=== PATIENT | female | born 1940 | race Caucasian/White ===

== ENCOUNTER → 2018-04-16 06:40 | Outpatient (CLI) | payer OTHER, SELFPAY ==
--- NOTE | 2018-04-16 07:17 | DI.MRI.S_ITS ---
PROCEDURE: MR SHOULDER RT WO CON INDICATIONS: acute on chronic r shoulder pain TECHNIQUE: Noncontrast oblique coronal T2 fast spin echo with fat saturation, oblique sagittal T1 spin echo and T2 fast spin echo with fat saturation, axial T1 spin echo and T2 fast spin echo with fat saturation through the shoulder. COMPARISON: None. FINDINGS: Image quality: There are motion artifacts on coronal images. Rotator cuff: There is a full-thickness tear of the supraspinatus tendon measuring 11 mm in the AP dimension and 8 mm in the transverse dimension. The infraspinatus and subscapularis tendons appear intact but irregular consistent with tendinitis. Sagittal images demonstrate no muscle atrophy. Bones and bursae: No bone marrow contusions or fractures. There is moderate acromioclavicular and severe glenohumeral joint degeneration. The acromion demonstrates conventional anatomy, without an os acromiale. Small joint effusion. Capsule and soft tissues: In the absence of intra-articular contrast, the labrum and glenohumeral ligaments appear intact. The transverse ligament is torn. The long head of the biceps tendon is displaced just outside of the bicipital groove. There is partial tear or tendinitis of the long head of biceps tendon. The rotator interval appears normal, without fibrosis. The coracohumeral ligament is normal in thickness. IMPRESSION: 1. Full- thickness tear of the supraspinatus tendon. 2. Infraspinatus and subscapularis tendinitis. 3. Severe glenohumeral and moderate acromioclavicular joint degeneration. 4. Torn transverse ligament with the long head of the biceps tendon dislocated outside of the bicipital groove. There is partial tear versus tendinitis of the long head of the biceps tendon. Dictated by: Cristian Ellison M.D. on 04/16/2018 at 8:26 Transcribed by: REMY on 04/16/2018 at 8:38 Approved by: Cristian Ellison M.D. on 04/16/2018 at 11:32
== END ==
PROVIDERS: Family Provider Family Medicine; PCP Family Medicine; Visit Provider Nurse Practitioner Family
DX: S46.111A Strain of muscle, fascia and tendon of long head of biceps, right arm, initial encounter (principal); M25.511 Pain in right shoulder; M75.101 Unspecified rotator cuff tear or rupture of right shoulder, not specified as traumatic; M75.91 Shoulder lesion, unspecified, right shoulder; M19.011 Primary osteoarthritis, right shoulder
CPT/HCPCS: 73221

== ENCOUNTER → 2018-10-02 11:41 | Outpatient (CLI) | payer OTHER, SELFPAY ==
--- NOTE | 2018-10-02 | DI.MG.S_ITS ---
BILATERAL DIGITAL SCREENING MAMMOGRAM 3D/2D WITH CAD: 10/02/2018 CLINICAL: Routine screening. Comparison is made to exams dated: 09/17/2017 mammogram, 09/01/2017 mammogram, and 07/24/2016 mammogram - [facility]. The tissue of both breasts is extremely dense, which lowers the sensitivity of mammography. Current study was also evaluated with a Computer Aided Detection (CAD) system. No significant masses, calcifications, or other findings are seen in either breast. There has been no significant interval change. IMPRESSION: NEGATIVE There is no mammographic evidence of malignancy. A 1 year screening mammogram is recommended. This exam was interpreted at Station ID: [id number]. NOTE: For mammograms, a report in lay terms will be sent to the patient. Approximately 15% of breast malignancies will not be visualized mammographically. In the management of a palpable breast mass, a negative mammogram must not discourage biopsy of a clinically suspicious lesion. Electronically Signed By: Erica pinto/brenton:10/02/2018 12:18:06 letter sent: Normal Exam ACR BI-RADS Category 1: Negative 3341F
== END ==
PROVIDERS: PCP Family Medicine; Visit Provider Family Medicine
DX: Z12.31 Encounter for screening mammogram for malignant neoplasm of breast (principal)
CPT/HCPCS: 77063; 77067

== ENCOUNTER → 2018-12-17 07:13 | Outpatient (CLI) | payer OTHER, SELFPAY ==
[2018-12-17 08:10] LABS: Add Manual Diff / Slide Review NO; Basophils Absolute Auto 0 /uL (0-100); Basophils Percent Auto 1.1 % (0-2); Eosinophils Absolute Auto 100 /uL (0-450); Hematocrit 43.3 % (36-46); Hemoglobin 14.3 g/dL (12.0-16.0); Lymphocytes Absolute Auto 900 /uL (1100-4500); Mean Corpuscular Hemoglobin 31.2 PG (26-34); Mean Corpuscular Volume 94.8 fL (80-100); Monocytes Absolute Auto 500 /uL (0-900); Monocytes Percent Auto 10.5 % (3-14); Neutrophils Absolute Auto 2900 /uL (1500-7000); Neutrophils Percent Auto 65.4 % (50-75); Platelet Count 232 X10^3/uL (150-400); Red Blood Cell Count 4.56 X10^6/uL (4.0-5.2); Red Cell Distribution Width 12.3 % (11.6-14.8); White Blood Cell Count 4.5 X10^3/uL (4.5-11.0)
[2018-12-17 08:14] LABS: Alanine Aminotransferase 21 IU/L (9-52); Albumin 4.3 g/dL (3.5-5.0); Albumin Globulin Ratio 1.5 (1.0-2.8); Alkaline Phosphatase 54 U/L (38-126); Aspartate Aminotransferase 28 IU/L (14-36); Bilirubin Total 0.8 mg/dL (0.2-1.3); Blood Urea Nitrogen 18 mg/dL (7-17); Calcium 9.1 mg/dL (8.4-10.2); Carbon Dioxide 29 mmol/L (22-32); Chloride 101 mmol/L (98-107); Cholesterol 180 mg/dL (140-199); Estimated Glomerular Filt Rate > 60.0 mL/min (>60); Globulin 2.8 g/dL (1.7-4.1); Glucose 86 mg/dL (80-110); HDL Cholesterol 79 mg/dL (40-60); HEMOLYSIS < 15 (0-50); LDL Cholesterol Calculated 90 mg/dL (<100); Potassium 4.2 mmol/L (3.4-5.1); Sodium 136 mmol/L (137-145); Total Protein 7.1 g/dL (6.3-8.2); Triglycerides 56 mg/dL (35-150)
[2018-12-17 08:16] LABS: Creatinine Urine Random 67.2 mg/dL
[2018-12-17 08:19] LABS: Microalbumi Creatinin Ratio Ur 17.8 ug/mg CR (<30); Microalbumin Urine Random 1.2 mg/dL (0-1.6)
[2018-12-17 08:30] LABS: Vitamin D 25 Hydroxy (D3) 44.4 ng/mL (30.0-100.0)
[2018-12-17 08:45] LABS: Thyroid Stimulating Hormone 1.43 uIU/mL (0.47-4.68)
== END ==
PROVIDERS: PCP Family Medicine; Visit Provider Family Medicine
DX: I10 Essential (primary) hypertension (principal); M85.80 Other specified disorders of bone density and structure, unspecified site; R89.9 Unspecified abnormal finding in specimens from other organs, systems and tissues; Z13.0 Encounter for screening for diseases of the blood and blood-forming organs and certain disorders involving the immune mechanism; Z13.1 Encounter for screening for diabetes mellitus; Z13.220 Encounter for screening for lipoid disorders
CPT/HCPCS: 36415; 80053; 80061; 82043; 82306; 82570; 84443; 85025

== ENCOUNTER → 2019-10-13 10:49 | Outpatient (CLI) | payer OTHER, SELFPAY ==
--- NOTE | 2019-10-13 | DI.MG.S_ITS ---
BILATERAL DIGITAL SCREENING MAMMOGRAM 3D/2D WITH CAD: 10/13/2019 CLINICAL: Routine screening. Comparison is made to exams dated: 10/02/2018 mammogram, 09/17/2017 mammogram, and 09/01/2017 mammogram - [facility]. The tissue of both breasts is extremely dense, which lowers the sensitivity of mammography. Current study was also evaluated with a Computer Aided Detection (CAD) system. There is a benign calcification in the right breast. There also are benign post operative findings in the right breast. No significant masses, calcifications, or other findings are seen in either breast. There has been no significant interval change. IMPRESSION: There is no mammographic evidence of malignancy. A 1 year screening mammogram is recommended. This exam was interpreted at Station ID: [id number]. NOTE: For mammograms, a report in lay terms will be sent to the patient. Approximately 15% of breast malignancies will not be visualized mammographically. In the management of a palpable breast mass, a negative mammogram must not discourage biopsy of a clinically suspicious lesion. Electronically Signed By: Federico mercado/brenton:10/13/2019 11:54:34 letter sent: Normal Exam ACR BI-RADS Category 2: Benign Finding(s) 3342F
== END ==
PROVIDERS: PCP Family Medicine; Referring Provider Family Medicine; Visit Provider Family Medicine
DX: Z12.31 Encounter for screening mammogram for malignant neoplasm of breast (principal)
CPT/HCPCS: 77063; 77067

== ENCOUNTER → 2019-11-02 10:35 | Outpatient (CLI) | payer OTHER, SELFPAY ==
[2019-11-02 12:21] LABS: Influenza A - CEPHEID Flu A NEGATIVE (NEGATIVE); Influenza B - CEPHEID Flu B NEGATIVE (NEGATIVE)
[2019-11-04 09:27] LABS: COVID19 Sendout Detected (Not Detected)
== END ==
PROVIDERS: PCP Family Medicine; Visit Provider Physician Assistant
DX: R06.02 Shortness of breath (principal)
CPT/HCPCS: 87502; 87635

== ENCOUNTER → 2019-11-30 10:00 | Outpatient (CLI) | payer OTHER, SELFPAY ==
[2019-12-02 04:36] LABS: COVID19 Sendout Not Detected (Not Detected)
== END ==
PROVIDERS: PCP Family Medicine; Visit Provider Family Medicine
DX: Z11.9 Encounter for screening for infectious and parasitic diseases, unspecified (principal)
CPT/HCPCS: 87635

== ENCOUNTER → 2019-12-27 14:09 | Outpatient (CLI) | payer OTHER, SELFPAY ==
--- NOTE | 2019-12-27 14:11 | DI.US.S_ITS ---
ULTRASOUND OF RIGHT BREAST: 12/27/2019 CLINICAL: Palpable right breast lump. Comparison is made to exams dated: 12/27/2019 mammogram, 10/13/2019 mammogram, 10/02/2018 mammogram, 09/01/2017 mammogram, 07/24/2016 mammogram, and 07/13/2014 [facility]. Color flow and real-time ultrasound of the right breast were performed on the areas of interest. Goode scale images of the real-time examination were reviewed. There is a 1.4 cm x 1.5 cm x 1.9 cm irregular mass in the right breast at 11 o'clock middle depth. This irregular mass is hypoechoic. This correlates as palpated and with mammography findings. There also is a 0.9 cm x 0.9 cm x 0.8 cm irregular mass in the right breast at 11 o'clock middle depth 1 cm from the palpable mass. IMPRESSION: HIGHLY SUGGESTIVE OF MALIGNANCY The 1.4 cm x 1.5 cm x 1.9 cm irregular mass in the right breast at 10 o'clock middle depth is highly suggestive of malignancy. An ultrasound guided biopsy is recommended. The 0.9 cm x 0.9 cm x 0.8 cm irregular mass in the right breast at 10 o'clock middle depth is at a high suspicion for malignancy. Given the proximity to the palpable mass, both lesions can potentially be biopsied at the same time. This exam was interpreted at Station ID: [id number]. SUMMARY: This was discussed with the patient by the radiologist Dr. Contreras at the time of the exam. Electronically Signed By: Erica pinto/:12/27/2019 16:11:34 letter sent: Biopsy Required Ultrasound BI-RADS: 5 Highly suggestive of malignancy
--- NOTE | 2019-12-27 14:11 | DI.MG.S_ITS ---
UNILATERAL RIGHT DIGITAL DIAGNOSTIC MAMMOGRAM 3D/2D: 12/27/2019 CLINICAL: Right breast mass. Comparison is made to exams dated: 10/13/2019 mammogram, 10/02/2018 mammogram, and 09/01/2017 mammogram - [facility]. The tissue of right breast is extremely dense, which lowers the sensitivity of mammography. There is architectural distortion in the right breast at 12 o'clock middle depth. This correlates as palpated. No other significant masses or calcifications are seen in the breast. IMPRESSION: INCOMPLETE: NEEDS ADDITIONAL IMAGING EVALUATION The architectural distortion in the right breast is indeterminate. A targeted ultrasound of the right breast is recommended and will be performed immediately following this exam. This exam was interpreted at Station ID: [id number]. NOTE: For mammograms, a report in lay terms will be sent to the patient. Approximately 15% of breast malignancies will not be visualized mammographically. In the management of a palpable breast mass, a negative mammogram must not discourage biopsy of a clinically suspicious lesion. Electronically Signed By: Erica Wyman M.D. lk/:12/27/2019 14:55:31 ACR BI-RADS Category 0: Incomplete 3340F
== END ==
PROVIDERS: PCP Family Medicine; Referring Provider Family Medicine; Visit Provider Family Medicine
DX: R92.8 Other abnormal and inconclusive findings on diagnostic imaging of breast (principal); N63.11 Unspecified lump in the right breast, upper outer quadrant
CPT/HCPCS: 76642; 77065; G0279

== ENCOUNTER → 2020-01-10 12:49 | Outpatient (CLI) | payer OTHER, SELFPAY ==
--- NOTE | 2020-01-10 | PATH_ITS ---
[facility] Accession Number: [id number] . 01 Material submitted: . breast - RIGHT BREAST MASS . 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 Greatest linear extent: 2 mm. Ductal carcinoma in situ: Not identified. Microcalcifications: Not identified. Lymphovascular invasion: Not identified. Prognostic markers: Results are pending, and results will be issued in an addendum. [facility] 01/12/2020 1332 Local . 02 Comment: As part of routine air quality specialist, Dr. Pittman has reviewed this case and agrees with the diagnosis of invasive ductal carcinoma. The finding of invasive ductal carcinoma was reported to Dr. Flynn via his RN, Anayeli by Dr. Sarmiento on 01/12/20 at 1 p.m. . 02 Electronically signed: . Gómez Sarmiento MD, PhD, Pathologist NPI- [id number] . 01 Gross description: . Received one formalin-filled container, labeled with the patient's name and designated right breast mass. The specimen is received with a plastic filter in container, sample loose in container and consists of multiple light yellow-valera, cylindrical-shaped portions of tissue which range in size from 0.2 x 0.1 x 0.1 cm to 1.3 x 0.3 x 0.3 cm. The specimen is filtered, wrapped, and entirely submitted in one cassette. Collection date: 01/10/20. Collection time per container: 1405. Total fixation time: Approximately 10 hours. ([id number]) /R 01/11/2020 0215 Local . 02 Pathologist provided ICD-10: C50.911 . 02 CPT . 656362, P38662, J01063 Performed at: 01 [facility] [address] [address], [place], [place] [id number] MD Moses Dubon MD Phone: [phone] Performed at: [id number] [place], [place] [id number] MD Crys Pittman MD Phone: [phone]
--- NOTE | 2020-01-10 | DI.MG.S_ITS ---
UNILATERAL RIGHT DIGITAL DIAGNOSTIC MAMMOGRAM POST-NEEDLE BIOPSY: 01/10/2020 CLINICAL: Right breast mass. Comparison is made to exams dated: 12/27/2019 mammogram, 10/13/2019 mammogram, and 10/02/2018 mammogram - [facility]. The tissue of right breast is extremely dense, which lowers the sensitivity of mammography. Earlier US had raised concern for presence of a possible lateral mass adjacent to the larger hypoechoic mass that was biopsied today. The smaller structure could not be identified by US today despite careful review of the soft tissues lateral to the dominant mass and in this general area. It was not found, and is considered a false positive finding. There is a mass in the right breast at 10 o'clock anterior depth. This was identified by US and biopsied, and thereafter a Vision marker clip at the site of biopsy was deployed. IMPRESSION: POST PROCEDURE MAMMOGRAM FOR MARKER PLACEMENT A small questionable sonographic density lateral but in close proximity to the clearly visible larger mass could not be found despite careful sonographic evaluation of the area of prior concern, and is considered a false positive. The hypoechoic solid mass clearly seen in the right breast breast was biopsied and a Vision marker was placed at the posterior border of the mass with position confirmed by both US and followup mammogram. This exam was interpreted at Station ID: [id number]. NOTE: For mammograms, a report in lay terms will be sent to the patient. Approximately 15% of breast malignancies will not be visualized mammographically. In the management of a palpable breast mass, a negative mammogram must not discourage biopsy of a clinically suspicious lesion. Electronically Signed By: Chintan Contreras M.D. sdh/:01/11/2020 10:45:44 ACR BI-RADS Category Post-procedure mammogram for marker placement
--- NOTE | 2020-01-10 12:51 | DI.US.S_ITS ---
ULTRASOUND GUIDED BIOPSY RIGHT BREAST USING VACUUM DEVICE WITH MARKING DEVICE INSERTED AND POST MAMMOGRAPHIC IMAGIN01/10/2020 CLINICAL: Right breast mass. PATIENT CONSENT: Risks (minor bleeding, infection, vasovagal reaction and repeat procedure), benefits and alternatives were explained to the patient and written informed consent was obtained. Correlation is made to exams dated: 12/27/2019 ultrasound, 12/27/2019 mammogram, 10/13/2019 mammogram, 10/02/2018 mammogram, and 09/01/2017 mammogram - [facility]. An ultrasound guided biopsy using real-time ultrasound was performed for the concerning 1.4 cm x 1.5 cm x 1.9 cm circumscribed irregular shaped solid mass located in the right breast at 10 o'clock middle depth. This was described on the previous ultrasound report. A second area of concern just lateral to the dominant mass could not be located during scanning in the area of prior concern. The skin was prepped in the usual manner. Local anesthetic was administered to the access site. A skin romelia was made in the breast. The abnormality was approached from the lateral aspect. A 13 gauge biopsy needle was placed adjacent to the abnormality under ultrasound guidance. Once the needle was documented to be in the correct location, four cores were obtained using the Mammotome biopsy system. The patient received additional local anesthetic during the procedure. A Vision marker clip was inserted into the biopsy cavity. A skin closure strip and a sterile dressing were applied to the access site. Post procedure mammographic imaging demonstrates the location device at the targeted area and partial removal of the abnormality. The specimens were sent to the laboratory for pathological analysis. IMPRESSION: ULTRASOUND GUIDED BIOPSY MALIGNANT Ultrasound guided biopsy of the 1.4 cm x 1.5 cm x 1.9 cm solid mass in the right breast at 10 o'clock middle depth was successful. Pathology demonstrates invasive ductal carcinoma. Imaging findings are concordant. Recommend surgical/oncological consultation and management. A second adjacent area of prior sonographic concern just lateral to the larger lesion of concern could not be found in the right upper outer quadrant despite repeat scanning throughout that area. This exam was interpreted at Station ID: [id number]. Chintan Rea M.D. [facility]/:01/14/2020 11:44:53
== END ==
PROVIDERS: PCP Family Medicine; Referring Provider Family Medicine; Visit Provider Family Medicine
DX: C50.411 Malignant neoplasm of upper-outer quadrant of right female breast (principal); Z17.0 Estrogen receptor positive status [ER+]
CPT/HCPCS: 19083; 77065

== ENCOUNTER → 2020-01-28 13:00 | Outpatient (CLI) | payer OTHER, SELFPAY ==
[2020-01-29 09:30] LABS: COVID19 Sendout NOT DETECTED (Not Detect)
== END ==
PROVIDERS: PCP Family Medicine; Visit Provider Physician Assistant
DX: Z01.812 Encounter for preprocedural laboratory examination (principal)
CPT/HCPCS: 87635

== ENCOUNTER 2020-01-31 08:41 | Day surgery (SDC) | payer OTHER, SELFPAY ==
[2020-01-26 07:42] VITALS: BMI 18.8
--- NOTE | 2020-01-31 | PATH_ITS ---
[facility] Accession Number: [id number] . 01 Material submitted: . PART A: lymph node - SENTINAL NODE RIGHT AXILLA PART B: breast - RIGHT BREAST . 01 Clinical history: . B: LONG STITCH MEDIAL, SHORT STITCH SUPERIOR RIGHT LUMPECTOMY W/SENT NODE . 01 Diagnosis: A. Right Axillary [place] Lymph Node, Biopsy: One of three lymph nodes positive for micrometastatic carcinoma, less than 1 mm, involving lymph node capsule. . B. Right Breast, Excision: Invasive ductal carcinoma; see cancer case summary. . . SURGICAL PATHOLOGY CANCER CASE SUMMARY - INVASIVE CARCINOMA OF THE BREAST Procedure: Excision: Specimen laterality: Right. Tumor site: Not specified. Tumor size: 17 mm (measured from glass slide, spanning blocks B6-B7). Histologic type: Invasive carcinoma of no special type (ductal). Histologic grade: Glandular tubular differentiation: Score 2. Nuclear pleomorphism: Score 2. Mitotic rate: Score 1. Overall grade: Grade 1. Tumor focality: Single focus of invasive carcinoma. Ductal carcinoma in situ: Not identified. Tumor extension: Skin is present and uninvolved. Margins: Invasive carcinoma margins: Uninvolved by invasive carcinoma. Distance from closest margin: 3 mm. Specify closest margin: Posterior. Distance from other margins: Greater than 5 mm from all other margins. Regional lymph nodes: Involved by tumor cells. Number of lymph nodes with macrometastes: 0. Number of lymph nodes with micrometastes: 1. Site of larges metastatic deposit: Less than 1 mm. Extranodal extension: Present. Extent of extranodal extension: Less than 2 mm. Total number of lymph nodes examined: 3. Number of sentinel lymph nodes examined: 3. Treatment effectiveness: No known presurgical therapy. Lymphovascular invasion: Not identified. Dermal lymphovascular invasion: Not identified. Pathologic stage classification (pTNM, AJCC 8th Edition): Primary tumor: pT1c. Regional lymph node modifier: (sn) Regional lymph nodes: pN1mi Ancillary studies (reported on biopsy specimen [id number]). Estrogen receptor: Positive. Progeterone receptor: Positive. HER2 by immunohistochemistry: Negative (1+). [facility] 02/03/2020 1537 Local . 01 Electronically signed: . Gómez Sarmiento MD, PhD, Pathologist NPI- [id number] . 01 Gross description: . Specimen A is received in formalin, labeled with patient identification and sentinel node right axilla. It consists of a yellow-lanza and lobulated fibroadipose tissue piece measuring 3.2 x 2.0 x 0.8 cm. There are three lymph node candidates, one has a black suture attached to it. The lymph node candidate with attached suture measures 1.0 x 0.8 x 0.5 cm. Bisected, this lymph node candidate reveals homogeneously dark red to white-lanza and smooth cut surfaces. The remaining two lymph node candidates are 0.6 to 1.1 cm in greatest dimension. Sectioning these two lymph node candidates reveals homogeneously yellow-lanza and smooth cut surfaces. The entire specimen is submitted in three cassettes. . Summary of sections: A1: One bisected lymph node candidate with attached suture, two pieces. A2: Two bisected lymph node candidates (one is inked blue), four pieces. A3: The remaining adipose tissue, three pieces. . B. Specimen B is received in formalin, labeled with patient identification and right breast, long stitch medial, short superior. Specimen: Right lumpectomy with attached skin. Weight: 51 grams. Measurement: 5.0 cm from superior to inferior, 6.8 cm from medial to lateral, and 2.5 cm from anterior to posterior. Skin Ellipse: One ellipse of white-lanza, dull attached skin is present, measuring 3.5 x 1.5 cm. A 0.4 x 0.4 x 0.1 cm, eccentric papule is present at 0.2 cm to the closest skin edge. Wire: Absent. Margins: Oriented with long medial suture and short superior suture, and inked as follows: posterior=black; anterior=purple; superior=blue; inferior=green; medial=yellow; lateral=orange. Slices: Sectioning from medial to lateral into 17 slices. Lesions: Two induration are present, the distance between two lesions is 1.0 cm. Lesion #1: Description: Unencapsulated, ill defined, light lanza and indurated lesion with a Vision biopsy clip (slice 11). Size: 2.5 x 1.8 x 1.5 cm. Slice involved: Slices 4-11. Biopsy site: A hemorrhagic biopsy cavity is present on slice 11 with a Vision-shaped biopsy clip. Distance to margins: 0.3 cm to the posterior margin, 0.6 cm to the anterior margin, 1.1 cm to inferior margin, 1.5 cm to the superior margin, 1.6 cm to the medial margin, and 2.7 cm to the lateral margin. Lesion #2: Description: Unencapsulated, white-lanza, ill-defined and indurated lesions with biopsy cavity (slice 14). Size: 0.9 x 0.8 x 0.5 cm. Biopsy site: On hemorrhagic biopsy site is present on slice 14 without biopsy clip. Slices involved: Slices 12-15. Distance to margins: 0.1 cm to the anterior margin, 0.4 cm to the superior margin, 1.2 cm to the lateral margin, 1.3 cm to the posterior margin, 2.2 cm to the inferior margin, and 4.1 cm to the medial margin. Other: The remaining cut surfaces consists of yellow, lobulated adipose tissue comprising 30% of the breast parenchyma. The remaining 70% consists of valera-white, rubbery, fibroglandular tissue. No additional discrete masses or lesions are grossly identified. Fixation time: The specimen was placed in formalin at 16:28 on 01/31/2020 for a total fixation time of 31 hours 30 minutes. Sections: B1: Slice 1, software support representative medial end of specimen, perpendicular, four pieces. B2: Slice 3, software support representative, no identifiable tumor, medial to lesion 1 (beginning of bracket). B3: Slice 4, lesion 1 to superior, anterior, posterior margins. B4: Slice 5, lesion 1 to anterior, posterior, inferior margins. B5: Slice 6, lesion 1 to posterior and anterior margins with skin. B6-B7: Entire slice 8, lesion 1 to the closest superior, anterior, inferior margins with skin and skin lesions, pair, one piece each. B8: Slice 9, lesion 1 to closest posterior margin, one piece. B9: Slice 10, lesion 1 to posterior and anterior margins with skin, one piece. B10-B11: Entire slice 11, lesion 1 with biopsy cavity, one piece each. B12: Slice 12, lesion 2 to anterior and posterior margins with skin, one piece. B13: Slice 13, lesion 2 to the closest anterior, posterior, superior margins with skin, one piece. B14: Slice 14, lesion 2 with biopsy cavity, one piece. B15: Slice 15, lesion 2 to anterior, posterior, and superior margin, one piece. B16: Slice 16, software support representative, no identifiable tumor, lateral to lesions (end of the bracket), one piece. B17: Slice 17, software support representative lateral end of specimen, perpendicular, three pieces. (TN:[id number]) /MRV 02/03/2020 1537 Local . 01 Pathologist provided ICD-10: C50.911 . 01 CPT . 809148, [id number] Performed at: [facility] [address] [place] [address], [place], [place] [id number] MD Moses Dubon MD Phone: [phone]
--- NOTE | 2020-01-31 | DI.MG.S_ITS ---
SPECIMEN: 01/31/2020 CLINICAL: Right breast speciman. Correlation is made to exams dated: 01/10/2020 mammogram, 01/10/2020 ultrasound biopsy, 12/27/2019 ultrasound, 12/27/2019 mammogram, and 10/13/2019 mammogram - [facility]. Right lumpectomy specimen contains the biopsy clip. IMPRESSION: SPECIMEN Right lumpectomy specimen contains the biopsy clip. This exam was interpreted at Station ID: [id number]. Terrell Rea M.D. slc/:01/31/2020 16:23:12
--- NOTE | 2020-01-31 08:46 | DI.NM.S_ITS ---
PROCEDURE: NM SENTINEL NODE W IMAGING RADIOPHARMACEUTICAL: 0.5-1.0 mCi Millipore filtered Tc-99m sulfur colloid. INDICATIONS: right breast lump TECHNIQUE: The area around the nipple was prepped and draped in a sterile fashion. Tc-99m sulfur colloid was injected intra-dermally in the outer edge of the areola in the right breast. Images were obtained subsequently. A body contour outline was obtained. FINDINGS: There is/are multiple lymph node(s) in the ipsilateral axilla. IMPRESSION: Administration of radiotracer into the right breast periareolar region for intra-operative sentinel lymph node localization. Dictated by: Ben Patrick M.D. on 01/31/2020 at 15:57 Approved by: Ben Patrick M.D. on 01/31/2020 at 15:58
[2020-01-31 09:05] VITALS: BP 120/72; PULSE 67; RESP 16; TEMP 37.1; O2SAT 96; BMI 18.6
[2020-01-31] MEDS: LACTATED RINGERS 1,000 ML 100 ML IV (12:00)
--- NOTE | 2020-01-31 14:28 | PM.PREOP ---
Pre-operative Note COVID-19 COVID-19 status: Negative Result date/Date tested (Pos, Neg/Pending): 01/28/20 Interval Note History & Physical reviewed/Exam performed by Physician: Yes Changes to H&P: Yes H&P completed within 30 days and has changed as indicated here:: Patient was discussed at tumor board. There was question about the need for postoperative radiation and for sentinel node biopsy. There is disagreement in the literature as to how to proceed. The decision regarding radiation will hinge in part on whether there lymph nodes involved. Therefore sentinel node will be done though there is certainly indications in the literature though the studies are small that this may not add a great deal to her overall treatment.
[2020-01-31] MEDS: CEFAZOLIN 2 GM/100 ML FROZ.PIGGY IV (14:42)
--- NOTE | 2020-01-31 15:25 | SUR.OPER ---
Supine on padded OR bed, head on pillow, arms secured on padded arm boards at <90 degrees abduction, legs uncrossed, safety belt at thigh, tape over blanket over lower legs.
[2020-01-31] MEDS: BUPIVACAINE 0.5% (PF) VIAL 30 ML INJ (15:49)
[2020-01-31 16:33] VITALS: BP 173/71; PULSE 90; RESP 12; TEMP 36.7; O2SAT 97
[2020-01-31 16:38] VITALS: BP 164/73; PULSE 85; RESP 14; O2SAT 98
[2020-01-31 16:43] VITALS: BP 148/77; PULSE 82; RESP 13; O2SAT 98
--- NOTE | 2020-01-31 16:44 | P.OP_ITS ---
Operative Date/Time/Diagnoses Date of procedure: 01/31/20 Time of procedure: 16:28 Pre-op diagnosis: Right-sided breast cancer Post-op diagnosis: same Procedure & Clinicians Procedure: Lumpectomy/quadrantectomy with sentinel lymph node biopsy right axilla Same procedure as scheduled: Yes Indications: Right-sided breast cancer. Patient has palpable mass. Clinically negative axilla. Surgeon: Castillo Lee Click Yes if Unassisted: Yes Anesthesia Type: General Operative Notes Findings: One node removed that was hot. Mass removed which contained the clip that had been placed at biopsy in the center of the tissue removed. Closure Type: primary Specimen(s): other ([place] lymph node. Breast mass.) Prosthetic devices, grafts, tissues, transplants, or devices: None Estimated Blood Loss (mL): 15 Blood products transfused: none Procedure in detail: The patient was placed supine on the operating table and underwent general LMA anesthesia. She was prepped and draped in the usual fashion. Transverse incision was made across the axilla and carried down into the axilla proper. Using a navigator probe identified a sentinel node. It was excised and a 12nd count done on it. This registered 4200. There were no other nodes in the area that even came close to the value of this lymph node. The axillary fascia was closed with interrupted 3 0 Vicryl. The subcu was closed with interrupted 3 0 Vicryl and the skin was closed running 4 0 Vicryl subcuticular stitch. Attention was turned to the breast mass. Using completely different instruments changing gloves I made an elliptical incision overlying the palpable mass. This included a portion of the areola complex. Staying immediately beneath the skin to avoid anterior positive margin I dissected the palpable mass from the tissue overlying it. I felt clearly soft margins at the edges and dissected down to the chest wall in remove the mass right off of pectoralis major fascia. In the dissection I encountered scar from a prior biopsy in the lateral aspect of my dissection. The specimen was submitted for radiologic evaluation and a contained the clip and the density. Meticulous hemostasis was achieved. Because the patient had rather small breasts and a rather large defect was created by the lumpectomy I mobilized the tissue off the underlying pack ends was able to slide it into the defect and was able to close it with tissue. Clips were placed in the wall prior to completion of this closure. This was to daniel the site should it be needed for radiation. The skin was closed a running 4 0 Vicryl subcuticular stitch and a running 6 0 Prolene skin suture. The wounds were cleaned. Steri-Strips were applied to the axillary incision. Dressings were applied over these consisting a Telfa and Tegaderm. I then placed an ABD over the whole area and wrapped it with a 6 since Robert wrap. She was taken to the recovery room awake and extubated in good condition. Complications: none Post-operative Condition: stable Disposition: PACU Plan for aftercare: Follow-up in the office
[2020-01-31 16:52] VITALS: BP 162/76; PULSE 76; RESP 12; TEMP 36.7; O2SAT 95
[2020-01-31] MEDS: ACETAMINOPHEN 325 MG TABLET PO (16:55)
[2020-01-31 17:10] VITALS: BP 158/81; PULSE 67; RESP 16; TEMP 36.7; O2SAT 96
== END 2020-01-31 17:15 | disposition home or self-care (01) ==
PROVIDERS: PCP Family Medicine; Referring Provider Specialist; Visit Provider Specialist
PROC: (CPT 19301; principal; 2020-01-31 14:30)
DX: C50.911 Malignant neoplasm of unspecified site of right female breast (principal)
CPT/HCPCS: 19301; 38500; 76098; 78195; A9541; J0690; J1100; J2405; J2704; J3010

== ENCOUNTER → 2020-03-04 08:09 | Outpatient (CLI) | payer OTHER, SELFPAY ==
[2020-03-04 09:25] LABS: Add Manual Diff / Slide Review NO; Basophils Absolute Auto 100 /uL (0-100); Eosinophils Absolute Auto 100 /uL (0-450); Eosinophils Percent Auto 2.6 % (2-4); Hematocrit 43.9 % (36-46); Hemoglobin 14.7 g/dL (12.0-16.0); Lymphocytes Absolute Auto 800 /uL (1100-4500); Lymphocytes Percent Auto 15.6 % (25-40); Mean Corpuscular HGB Conc 33.5 % (30-36); Mean Corpuscular Hemoglobin 31.4 PG (26-34); Mean Corpuscular Volume 93.9 fL (80-100); Monocytes Absolute Auto 500 /uL (0-900); Monocytes Percent Auto 9.9 % (3-14); Neutrophils Absolute Auto 3500 /uL (1500-7000); Neutrophils Percent Auto 70.9 % (50-75); Platelet Count 207 X10^3/uL (150-400); Red Blood Cell Count 4.67 X10^6/uL (4.0-5.2); Red Cell Distribution Width 12.2 % (11.6-14.8); White Blood Cell Count 4.9 X10^3/uL (4.5-11.0)
[2020-03-04 09:43] LABS: Alanine Aminotransferase 24 IU/L (<35); Albumin 4.4 g/dL (3.5-5.0); Alkaline Phosphatase 62 U/L (38-126); Aspartate Aminotransferase 31 IU/L (14-36); BUN Creatinine Ratio 29.8 (6-22); Blood Urea Nitrogen 14 mg/dL (7-17); Calcium 9.6 mg/dL (8.4-10.2); Carbon Dioxide 26 mmol/L (22-32); Chloride 103 mmol/L (98-107); Cholesterol 165 mg/dL (140-199); Estimated Glomerular Filt Rate > 60.0 mL/min (>60); Globulin 2.2 g/dL (1.7-4.1); Glucose 85 mg/dL (80-110); HDL Cholesterol 94 mg/dL (40-60); HEMOLYSIS < 15 (0-50); LDL Cholesterol Calculated 62 mg/dL (<100); Potassium 4.5 mmol/L (3.4-5.1); Sodium 135 mmol/L (137-145); Total Protein 6.6 g/dL (6.3-8.2); Triglycerides 45 mg/dL (35-150)
[2020-03-04 10:11] LABS: Thyroid Stimulating Hormone 1.52 uIU/mL (0.47-4.68)
== END ==
PROVIDERS: PCP Family Medicine; Referring Provider Family Medicine; Visit Provider Family Medicine
DX: M85.80 Other specified disorders of bone density and structure, unspecified site (principal)
CPT/HCPCS: 36415; 80053; 80061; 84443; 85025

== ENCOUNTER → 2020-03-30 14:05 | Outpatient (CLI) | payer OTHER, SELFPAY | PROVIDERS: PCP Family Medicine; Referring Provider Family Medicine; Visit Provider Family Medicine | DX: M85.852 Other specified disorders of bone density and structure, left thigh (principal); Z78.0 Asymptomatic menopausal state; Z82.62 Family history of osteoporosis; Z85.3 Personal history of malignant neoplasm of breast; Z87.891 Personal history of nicotine dependence | CPT/HCPCS: 77080 ==

== ENCOUNTER → 2020-07-28 12:37 | Outpatient (CLI) | payer OTHER, SELFPAY ==
--- NOTE | 2020-07-28 | DI.MG.S_ITS ---
BILATERAL DIGITAL DIAGNOSTIC MAMMOGRAM 3D/2D SHORT-TERM FOLLOW-UP: 07/28/2020 CLINICAL: Patient returns for a 6 month follow up of the right breast, due for bilateral exam. Comparison is made to exams dated: 01/10/2020 mammogram, 12/27/2019 mammogram, 10/13/2019 mammogram, and 10/02/2018 mammogram - [facility]. The tissue of both breasts is heterogeneously dense. This may lower the sensitivity of mammography. The right breast has expected post-operative findings. No significant masses, calcifications, or other findings are seen in either breast. IMPRESSION: NEGATIVE There is no mammographic evidence of malignancy. A 1 year screening mammogram is recommended. However, shorter interval follow up imaging can also be performed at the clinical discretion of patient's physician. Findings and recommendations were conveyed to the patient during today's evaluation. This exam was interpreted at Station ID: [id number]. NOTE: For mammograms, a report in lay terms will be sent to the patient. Approximately 15% of breast malignancies will not be visualized mammographically. In the management of a palpable breast mass, a negative mammogram must not discourage biopsy of a clinically suspicious lesion. Electronically Signed By: Federico Woodruff M.D. aty/:07/28/2020 13:57:34 letter sent: Normal Exam ACR BI-RADS Category 1: Negative 3341F
== END ==
PROVIDERS: PCP Family Medicine; Referring Provider Radiology Therapeutic Radiology; Visit Provider Radiology Therapeutic Radiology
DX: R92.8 Other abnormal and inconclusive findings on diagnostic imaging of breast (principal)
CPT/HCPCS: 77066; G0279

== ENCOUNTER → 2021-04-02 13:51 | Outpatient (CLI) | payer OTHER, SELFPAY ==
--- NOTE | 2021-04-02 13:52 | DI.RAD.S_ITS ---
PROCEDURE: XR SHOULDER LT MIN 2V INDICATIONS: progressive L shoulder pain TECHNIQUE: 3 views of the shoulder were acquired. COMPARISON: [facility] [place], CR, XR SHOULDER 2+ VIEWS RIGHT, 04/28/2018, 14:43. FINDINGS: Bones: No fractures or dislocations. No suspicious bony lesions. Visualized ribs appear intact. Soft tissues: No suspicious soft tissue calcifications. Atherosclerotic vascular calcification noted in the aortic arch. IMPRESSION: Aortic atherosclerosis. Otherwise unremarkable left shoulder radiographs Approved by: Malcolm Plummer M.D. on 04/02/2021 at 13:42
== END ==
PROVIDERS: PCP Family Medicine; Referring Provider Family Medicine; Visit Provider Family Medicine
DX: M75.00 Adhesive capsulitis of unspecified shoulder (principal); M25.512 Pain in left shoulder; I70.0 Atherosclerosis of aorta
CPT/HCPCS: 73030

== ENCOUNTER → 2021-05-21 08:42 | Outpatient (CLI) | payer OTHER, SELFPAY ==
--- NOTE | 2021-05-21 | DI.MG.S_ITS ---
BILATERAL DIGITAL DIAGNOSTIC MAMMOGRAM 3D/2D: 05/21/2021 CLINICAL: Breast cancer. Comparison is made to exams dated: 07/28/2020 mammogram, 01/10/2020 mammogram, 12/27/2019 mammogram, 10/13/2019 mammogram, 10/02/2018 mammogram, and 09/01/2017 mammogram - [facility]. The tissue of both breasts is heterogeneously dense. This may lower the sensitivity of mammography. There is a benign calcification in the right breast. There also are expected post operative findings in the right breast. No significant masses, calcifications, or other findings are seen in either breast. There has been no significant interval change. IMPRESSION: BENIGN There is no mammographic evidence of malignancy. Expected post-operative findings in the right breast. A 1 year screening mammogram is recommended. Exam findings were conveyed to the patient. This exam was interpreted at Station ID: [id number]. NOTE: For mammograms, a report in lay terms will be sent to the patient. Approximately 15% of breast malignancies will not be visualized mammographically. In the management of a palpable breast mass, a negative mammogram must not discourage biopsy of a clinically suspicious lesion. Electronically Signed By: Terrell Rea M.D. slc/:05/21/2021 09:24:25 letter sent: Normal Exam ACR BI-RADS Category 2: Benign Finding(s) 3342F
== END ==
PROVIDERS: PCP Family Medicine; Referring Provider Family Medicine; Visit Provider Family Medicine
DX: R92.8 Other abnormal and inconclusive findings on diagnostic imaging of breast (principal); C50.911 Malignant neoplasm of unspecified site of right female breast
CPT/HCPCS: 77066; G0279

== ENCOUNTER → 2021-12-25 09:00 | Outpatient (CLI) | payer OTHER, SELFPAY ==
--- NOTE | 2021-12-25 09:02 | DI.US.S_ITS ---
PROCEDURE: US ABD AORTA ANEURYSM SCREEN INDICATIONS: AAA SCREENING. PALPABLE AORTA ON CLINIC VISIT TECHNIQUE: Real time scanning was performed of the aorta and iliac arteries, with image documentation. COMPARISON: None. FINDINGS: Aorta: Proximal aortic diameter measures 2.4 cm. Mid-aorta measures 1.8 cm. Distal aortic diameter is 1.5 cm. Iliac arteries: Right common iliac artery measures 0.9 cm. Left common iliac artery measures 1 cm. IMPRESSION: Negative for aneurysm. Dictated by: Trell Ryan M.D. on 12/25/2021 at 9:34 Approved by: Trell Ryan M.D. on 12/25/2021 at 9:36
== END ==
PROVIDERS: Family Provider Family Medicine; PCP Family Medicine; Referring Provider Family Medicine; Visit Provider Family Medicine
DX: R19.00 Intra-abdominal and pelvic swelling, mass and lump, unspecified site (principal); R09.89 Other specified symptoms and signs involving the circulatory and respiratory systems; I10 Essential (primary) hypertension; Z13.6 Encounter for screening for cardiovascular disorders
CPT/HCPCS: 76706

== ENCOUNTER → 2022-02-26 10:26 | Outpatient (CLI) | payer OTHER, SELFPAY | PROVIDERS: Family Provider Family Medicine; PCP Family Medicine; Referring Provider Family Medicine; Visit Provider Family Medicine ==

== ENCOUNTER → 2022-03-21 10:25 | Outpatient (CLI) | payer OTHER, SELFPAY ==
--- NOTE | 2022-03-21 10:29 | DI.RAD.S_ITS ---
PROCEDURE: XR KNEE LT 3V INDICATIONS: chronic knee pain, h/o arthritis, spurs vs other? TECHNIQUE: 3 views of the knee were acquired. COMPARISON: None. FINDINGS: Bones: No fractures or dislocations. Mild tricompartmental osteoarthritis is seen. Radiolucency involving posterior and lateral aspect of patella concerning for small osteochondral injury in this area. No suspicious bony lesions. Soft tissues: No joint effusion. No suspicious soft tissue calcifications. IMPRESSION: Mild tricompartmental osteoarthritis. No fracture or dislocation. Possible osteochondral injury involving posterior and lateral portion of patella suggest clinical correlation. No significant joint effusion. Dictated by: Umang Ramírez M.D. on 03/21/2022 at 11:30 Approved by: Umang Ramírez M.D. on 03/21/2022 at 11:31
[2022-03-21 13:32] LABS: Erythrocyte Sedimentation Rate 21 MM/HR (0-20)
[2022-03-21 15:06] LABS: Alanine Aminotransferase 23 IU/L (<35); Albumin 4.1 g/dL (3.5-5.0); Albumin Globulin Ratio 1.4 (1.0-2.8); Alkaline Phosphatase 55 U/L (38-126); Aspartate Aminotransferase 32 IU/L (14-36); Bilirubin Total 0.4 mg/dL (0.2-1.3); Blood Urea Nitrogen 12 mg/dL (7-17); Calcium 9.2 mg/dL (8.4-10.2); Carbon Dioxide 29 mmol/L (22-32); Chloride 99 mmol/L (98-107); Estimated Glomerular Filt Rate > 60 mL/min (>60); Glucose 96 mg/dL (80-110); HEMOLYSIS < 15 (0-50); Potassium 4.6 mmol/L (3.4-5.1); Sodium 135 mmol/L (137-145); Total Protein 7.1 g/dL (6.3-8.2); Uric Acid 3.6 mg/dL (2.5-6.2)
[2022-03-21 15:23] LABS: Rheumatoid Factor < 8.6 IU/mL (<12.0)
== END ==
PROVIDERS: Family Provider Family Medicine; PCP Family Medicine; Referring Provider Pediatrics; Visit Provider Pediatrics
DX: M85.80 Other specified disorders of bone density and structure, unspecified site (principal); M25.562 Pain in left knee; G89.29 Other chronic pain; G56.03 Carpal tunnel syndrome, bilateral upper limbs; M25.50 Pain in unspecified joint; M65.30 Trigger finger, unspecified finger; M17.12 Unilateral primary osteoarthritis, left knee
CPT/HCPCS: 36415; 73562; 80053; 82306; 84550; 85651; 86430

== ENCOUNTER → 2022-05-23 14:19 | Outpatient (CLI) | payer OTHER, SELFPAY ==
--- NOTE | 2022-05-23 14:20 | DI.MG.S_ITS ---
BILATERAL DIGITAL SCREENING MAMMOGRAM 3D/2D WITH CAD: 05/23/2022 CLINICAL: Routine screening. Personal history of right breast cancer. Comparison is made to exams dated: 05/21/2021 mammogram, 07/28/2020 mammogram, and 10/13/2019 mammogram - [facility]. Both breasts are heterogeneously dense, which may obscure small masses (category c / 51-75% glandular tissue). Current study was also evaluated with a Computer Aided Detection (CAD) system. There is a benign calcification in the right breast. There also are benign post operative findings in the right breast. No significant masses, calcifications, or other findings are seen in either breast. There has been no significant interval change. IMPRESSION: BENIGN There is no mammographic evidence of malignancy. A 1 year screening mammogram is recommended. This exam was interpreted at Station ID: [id number]. NOTE: For mammograms, a report in lay terms will be sent to the patient. Approximately 15% of breast malignancies will not be visualized mammographically. In the management of a palpable breast mass, a negative mammogram must not discourage biopsy of a clinically suspicious lesion. Electronically Signed By: Ibrahima Oliver M.D., jr/brenton:05/23/2022 14:47:18 letter sent: Normal Exam ACR BI-RADS Category 2: Benign Finding(s) 3342F
== END ==
PROVIDERS: Family Provider Family Medicine; PCP Family Medicine; Referring Provider Family Medicine; Visit Provider Family Medicine
DX: Z12.31 Encounter for screening mammogram for malignant neoplasm of breast (principal); Z85.3 Personal history of malignant neoplasm of breast
CPT/HCPCS: 77063; 77067

== ENCOUNTER → 2022-07-01 11:37 | Outpatient (CLI) | payer OTHER, SELFPAY | PROVIDERS: Family Provider Family Medicine; PCP Family Medicine; Referring Provider Internal Medicine Medical Oncology; Visit Provider Internal Medicine Medical Oncology | DX: Z79.83 Long term (current) use of bisphosphonates (principal); Z78.0 Asymptomatic menopausal state; C50.911 Malignant neoplasm of unspecified site of right female breast; M85.851 Other specified disorders of bone density and structure, right thigh; Z92.23 Personal history of estrogen therapy | CPT/HCPCS: 77080 ==

== ENCOUNTER 2022-08-05 14:20 | Observation (INO) | payer OTHER, SELFPAY ==
[2022-08-05] VITALS (23 sets, daily range): BP systolic 157–199; BP diastolic 67–93; PULSE 58–72; RESP 16; TEMP 36.3–36.7; O2SAT 92–98; BMI 19.1
--- NOTE | 2022-08-05 14:50 | DI.CT.S_ITS ---
PROCEDURE: CT STROKE INDICATIONS: word salad/ CODE STROKE/ IN TPA WINDOW TECHNIQUE: Noncontrast 4.5 mm thick angled axial sections acquired from the foramen magnum to the vertex, with coronal reformats. For radiation dose reduction, the following was used: automated exposure control, adjustment of mA and/or kV according to patient size. COMPARISON: None. FINDINGS: Image quality: Excellent. CSF spaces: Basal cisterns are patent. No extra-axial fluid collections. Ventricles are normal in size and shape. Brain: No midline shift. No intracranial masses or hemorrhage. No area of hypodensity in a large vascular distribution to suggest acute infarction. Periventricular hypodensity consistent with chronic microvascular ischemic change. Age-related parenchymal loss. Skull and face: Calvarium and visualized facial bones are intact, without suspicious lesions. Sinuses: Visualized sinuses and mastoids are clear. IMPRESSION: No acute intracranial abnormality. Chronic microvascular ischemic disease. Comment: Findings were discussed with Paris Flores at 3:03 p.m. This study fulfills neurological imaging criteria for inclusion or exclusion of acute stroke therapies based on available published neurological imaging guidelines. Dictated by: Terrell Rea M.D. on 08/05/2022 at 15:01 Approved by: Terrell Rea M.D. on 08/05/2022 at 15:06
--- NOTE | 2022-08-05 14:50 | DI.CT.S_ITS ---
PROCEDURE: CT ANGIO HEAD AND NECK INDICATIONS: word salad TECHNIQUE: After the administration of intravenous contrast, 1 mm thick sections acquired from the aortic arch through the [place]. Post-contrast 4.5 mm thick sections then re-acquired from the foramen magnum to the vertex. 3-dimensional nnksskx-jgzzldnai-bsdlwwungx (MIP) and/or volume rendering reformats were acquired of the central intracranial vasculature and neck separately. For radiation dose reduction, the following was used: automated exposure control, adjustment of mA and/or kV according to patient size. COMPARISON: None. FINDINGS: Image quality: Excellent. BRAIN: CSF spaces: Ventricles are normal in size and shape. Basal cisterns are patent. No extra-axial fluid collections. Brain: No midline shift. No intracranial bleeds or masses. [place]-white matter interface appears intact. Age-related volume loss and severe small vessel ischemic change. Skull and face: Calvarium and facial bones appear intact, without suspicious lesions. Orbits appear normal. Sinuses: Sinuses and mastoids are clear. HEAD CT ANGIOGRAPHY: Anterior circulation: Intracranial internal carotid arteries are normal in size and flow. The flow within the paired anterior cerebral arteries is normal and symmetric. The flow within the middle cerebral arteries is normal and symmetric. The anterior communicating artery is seen. No aneurysms are seen. Posterior circulation: Visualized portions of the vertebral arteries demonstrate normal caliber, and join to form a normal appearing basilar artery. Flow within the posterior cerebral arteries is normal and symmetric. No aneurysms are seen. NECK CT ANGIOGRAPHY: Carotid system: The great vessels demonstrate a conventional anatomy as they arise from the aortic arch. The origins of the common carotid arteries appear patent. The common carotid arteries demonstrate normal caliber and courses. The bifurcation regions are both widely patent. The internal carotid arteries demonstrate normal calibers and courses. Posterior circulation: The origins of the vertebral arteries both appear widely patent. The more superior extracranial portions of both vertebral arteries also demonstrate normal courses and calibers. They join to form a normal appearing basilar artery. Soft tissues: Visualized neck soft tissues demonstrate no suspicious abnormalities. Bones: No suspicious bony lesions. Visualized cervical spine appears normally aligned. IMPRESSION: 1. Age-related volume loss and severe small vessel ischemic change. 2. No evidence acute intracranial process. 3. Unremarkable CTA head. No stenosis, aneurysm, occlusion, or focal filling defect. 4. Patent internal carotids. Comment: Findings were discussed with Dr. Flores on 08.05.22 at 1539 hours. Any quantitative measurements of stenosis were performed using NASCET criteria. Dictated by: Ephraim Chong M.D. on 08/05/2022 at 15:35 Approved by: Ephraim Chong M.D. on 08/05/2022 at 15:41
--- NOTE | 2022-08-05 14:50 | DI.RAD.S_ITS ---
PROCEDURE: XR CHEST 1V INDICATIONS: cva TECHNIQUE: One view of the chest was acquired. COMPARISON: [facility], CT, CT ANGIO HEAD AND NECK, 08/05/2022, 14:55. [facility], CR, CHEST 2 VIEW, 10/01/2016, 11:01. [facility], CR, CHEST 2 VIEW, 08/05/2013, 10:55. FINDINGS: Surgical changes and devices: Right breast clips Lungs and pleura: Lungs are clear. No pleural effusions or pneumothorax. Mediastinum: Mediastinal contours appear normal. Heart size is normal. Bones and chest wall: No suspicious bony lesions. Overlying soft tissues appear unremarkable. IMPRESSION: No acute cardiopulmonary abnormality. Dictated by: Terrell Rea M.D. on 08/05/2022 at 16:27 Approved by: Terrell Rea M.D. on 08/05/2022 at 16:30
[2022-08-05 15:19] LABS: Add Manual Diff / Slide Review NO; Basophils Absolute Auto 0 /uL (0-100); Basophils Percent Auto 0.4 % (0-2); Eosinophils Absolute Auto 100 /uL (0-450); Hematocrit 43.1 % (36-46); Hemoglobin 14.3 g/dL (12.0-16.0); Lymphocytes Absolute Auto 900 /uL (1100-4500); Lymphocytes Percent Auto 12.4 % (25-40); Mean Corpuscular HGB Conc 33.2 % (30-36); Mean Corpuscular Volume 93.4 fL (80-100); Monocytes Absolute Auto 600 /uL (0-900); Monocytes Percent Auto 8.9 % (3-14); Neutrophils Absolute Auto 5400 /uL (1500-7000); Neutrophils Percent Auto 77.3 % (50-75); Platelet Count 240 X10^3/uL (150-400); Red Blood Cell Count 4.61 X10^6/uL (4.0-5.2); Red Cell Distribution Width 12.4 % (11.6-14.8)
[2022-08-05 15:26] LABS: Prothrombin Time 11.7 SECONDS (10.1-12.7)
[2022-08-05 15:29] LABS: PTT Partial Thromboplastin Tim 29 SECONDS (26-36)
--- NOTE | 2022-08-05 15:35 | ED_ITS ---
HPI - Neuro Symptoms/Deficit General Chief Complaint: Neuro Symptoms/Deficit Stated Complaint: DIZZY/UNABLE TO TALK/TIRED Time Seen by Provider: 08/05/22 14:50 Source: patient Mode of arrival: Ambulatory History of Present Illness HPI Narrative: Patient is an 81-year-old female with history of breast cancer presenting today with difficulty speaking. She states she and a friend left rag & bone in a car at around 9:30 a.m. in the morning. She was her normal self until she dropped her friend off at home here in town when her friend noticed that she was talking gibberish. Her friend recognize that she may be having TIA. Her last known well was at approximately 12:30 p.m. Patient went home had some lunch and decided to come to the emergency department. She now seems to be speaking appropriately without slurring of speech and answering questions correctly. No prior history of CVA or TIA. She denies any other symptoms On Anticoagulants: No Related Data Home Medications Medication Instructions Recorded Confirmed cholecalciferol (vitamin D3) 1 tab PO DAILY 12/24/19 08/05/22 calcium carbonate 600 mg calcium 600 mg PO DAILY 04/02/21 08/05/22 (1,500 mg) tablet melatonin 1 mg tablet 5 mg PO BEDTIME 11/08/21 08/05/22 latanoprost 0.005 % eye drops 1 drp ophthalmic (eye) DAILY 12/18/21 08/05/22 Previous Rx's Medication Instructions Recorded letrozole 2.5 mg tablet 2.5 mg PO DAILY #90 tabs 11/08/21 Medigrip Thumb Splint #1 ea 04/18/22 Allergies Allergy/AdvReac Type Severity Reaction Status Date / Time ciprofloxacin [From CIPRO] Allergy Mild RED ITCHY Verified 05/24/22 09:37 RASH / DIARRHEA Review of Systems Review of Systems ROS Unobtainable: All systems reviewed & are unremarkable except as noted in HPI and below Hematologic/Lymphatic On Anticoagulants: No Patient History Medical History Adhesive capsulitis Arthralgia of multiple joints Borderline hypertension Breast cancer, right Carpal tunnel syndrome on both sides Cataract (2013) Chicken pox (~194) Chronic knee pain CTS (carpal tunnel syndrome) Dupuytren contracture Hearing loss (2012) Heart murmur Insomnia Left trigger finger Mumps (~195) Osteopenia (1998) Pulsatile abdominal mass Rheumatic fever (~1943) Tinnitus (~2004) Well adult exam Surgical History Anesthesia History of carpal tunnel repair (01/2005) History of carpal tunnel repair (08/2010) History of cataract surgery (2013) Hx of right breast biopsy Status post hernia repair (1947) Family History Mother Hypertension Stroke Bladder cancer Father Prostate cancer Sister No problems noted. Social History marital status: household members: none Smoking Status: Former smoker Tobacco: How many years used: 15 quit status: has quit before alcohol intake: current substance use type: does not use Smoking Status: Former smoker alcohol intake frequency: 0-2 drinks per day Substance Use Type: does not use Exam Initial Vital Signs Initial Vital Signs: Vital Signs Temperature 97.6 F 08/05/22 14:39 Pulse Rate 72 08/05/22 14:39 Respiratory Rate 16 08/05/22 14:39 Blood Pressure 177/92 H 08/05/22 14:39 Pulse Oximetry 98 08/05/22 14:39 Oxygen Delivery Method 08/05/22 14:39 GENERAL: The patient is a kath 81-year-old female in no acute distress HEENT: Head atraumatic,EOMI, pupils reactive, face symmetric, moist mucous membr anes CARDIOVASCULAR: Regular rate and rhythm without murmurs, rubs or gallops. RESPIRATORY: Breath sounds equal bilaterally, no wheezes rales or rhonchi. ABDOMEN: Soft, nontender. Normoactive bowel sounds all 4 quadrants. No guarding or rebound. EXTREMITIES: Normal range of motion, no clubbing or edema. Neurovascularly intact NEUROLOGICAL: Alert and oriented x4.Normal gait and speech. Cranial nerves II through XII grossly intact. Good soadok-qt-pxon, good mvab-eh-groy, strength equal bilaterally, no dysarthria or aphasia, sensation in tact to soft touch bilaterally, no visual changes, no facial droop SKIN: Warm, dry, no laceration, no petechiae, no rashes or lesions. Scores NIH Stroke Scale Level of Conciousness: Alert, keenly responsive Ask month/age: Answers both questions correctly. Open/close eyes, close hand: Performs both tasks correctly Best gaze horizontal: Normal Visual mckenzie: No visual loss Facial palsy: Normal symetrical movement Left arm drift: No drift for full 10 sec Right arm drift: No drift for full 10 sec Left leg drift: No drift for full 5 sec Right leg drift: No drift for full 5 sec Limb ataxia: Absent Sensory on face/arms/legs: Normal, no sensory loss Best language: No aphasia, normal Dysarthria: Normal Extinction or inattention: No abnormality Total NIH Stroke scale score: 0 Course Orders Ordered: ED Orders 08/05/22 14:[address] angio head and neck Stat Chest [XR chest 1V] Stat 08/05/22 14:51 Urinalysis and Microscopic Stat Urine Drug Screen, Rapid Stat EKG-12 Lead Stat 08/05/22 14:59 Complete Blood Count AUTO DIFF Stat Comprehensive Metabolic Panel Stat Ethanol (ETOH) Stat Partial Thromboplastin Time Stat Prothrombin Time INR Stat Troponin & CK Cardiac Panel Stat 08/05/22 15:10 COVID19 -Nasal RAPID/Pre-Proc Stat 08/05/22 16:09 MR head/brain wo con Stat 08/05/22 18:27 Consult to Occupational Therapy Evaluate & Treat Consult to Physical Therapy Evaluate & Treat Consult to Speech Therapy Evaluate & Treat EC echo doppler complete Urgent 08/06/22 05:00 Basic Metabolic Panel Routine Complete Blood Count AUTO DIFF Routine Hemoglobin A1C% w Est Avg Glu Routine Lipid Panel Routine Acetaminophen (Acetaminophen 325 Mg Tablet) 650 mg PO Q6H PRN PRN Reason: Fever/Mild Pain (1-3) Aspirin (Aspirin Ec 81 Mg Tablet) 81 mg PO DAILY [facility] Atorvastatin Calcium (Atorvastatin 20 Mg Tablet) 40 mg PO BEDTIME [facility] Heparin Sodium (Porcine) (Heparin 5,000 Unit/Ml Vial) 5,000 unit SUBCUT BID [facility] Letrozole (Letrozole 2.5 Mg Tablet) 2.5 mg PO DAILY [facility] Melatonin (Melatonin 3 Mg Tablet) 9 mg PO BEDTIME PRN PRN Reason: sleep Ondansetron HCl (Ondansetron 4 Mg/2 Ml Inj) 4 mg IV Q8HR PRN PRN Reason: Nausea And Vomiting Vital Signs Vital signs: Vital Signs - 8 hr 08/05/22 14:39 08/05/22 15:09 08/05/22 15:15 Temperature 97.6 F Pulse Rate 72 71 Respiratory Rate 16 Blood Pressure 177/92 H 199/92 H Pulse Oximetry 98 98 Oxygen Delivery Method Room Air 08/05/22 15:15 08/05/22 15:21 08/05/22 15:21 Temperature Pulse Rate 66 68 Respiratory Rate Blood Pressure 173/79 H Pulse Oximetry 97 98 Oxygen Delivery Method 08/05/22 15:32 08/05/22 15:35 08/05/22 15:35 Temperature Pulse Rate 65 65 Respiratory Rate Blood Pressure 187/87 H Pulse Oximetry 97 97 Oxygen Delivery Method 08/05/22 15:40 08/05/22 15:40 08/05/22 15:50 Temperature Pulse Rate 64 Respiratory Rate Blood Pressure 184/88 H 167/79 H Pulse Oximetry 95 Oxygen Delivery Method 08/05/22 15:50 08/05/22 16:00 08/05/22 16:00 Temperature Pulse Rate 67 64 Respiratory Rate Blood Pressure 182/87 H Pulse Oximetry 95 96 Oxygen Delivery Method 08/05/22 16:10 08/05/22 16:10 08/05/22 16:21 Temperature Pulse Rate 69 Respiratory Rate Blood Pressure 181/88 H 188/86 H Pulse Oximetry 96 Oxygen Delivery Method 08/05/22 16:21 08/05/22 16:30 08/05/22 16:30 Temperature Pulse Rate 64 64 Respiratory Rate Blood Pressure 184/83 H Pulse Oximetry 98 97 Oxygen Delivery Method MDM - Neuro Symptoms/Deficit Lab Data Result diagrams: 08/05/22 14:59 08/05/22 14:59 Labs: Lab Results 08/05/22 08/05/22 08/05/22 Range/Units 14:59 14:59 14:59 WBC 7.0 (4.5-11.0) X10^3/uL RBC 4.61 (4.0-5.2) X10^6/uL Hgb 14.3 (12.0-16.0) g/dL Hct 43.1 (36-46) % MCV 93.4 (80-100) fL MCH 31.0 (26-34) PG MCHC 33.2 (30-36) % RDW 12.4 (11.6-14.8) % Plt Count 240 (150-400) X10^3/uL Neut % (Auto) 77.3 H (50-75) % Lymph % (Auto) 12.4 L (25-40) % [place] % (Auto) 8.9 (3-14) % Eos % (Auto) 1.0 L (2-4) % Baso % (Auto) 0.4 (0-2) % Neut # (Auto) 5400 (4454-0968) /uL Lymph # (Auto) 900 L (1884-6117) /uL [place] # (Auto) 600 (0-900) /uL Eos # (Auto) 100 (0-450) /uL Baso # (Auto) 0 (0-100) /uL PT 11.7 (10.1-12.7) SECONDS INR 1.0 (0.9-1.3) APTT 29 (26-36) SECONDS Sodium 135 L (137-145) mmol/L Potassium 3.7 (3.4-5.1) mmol/L Chloride 98 (98-107) mmol/L Carbon Dioxide 27 (22-32) mmol/L BUN 16 (7-17) mg/dL Creatinine 0.57 (0.52-1.04) mg/dL Estimated GFR > 60 (>60) mL/min BUN/Creatinine Ratio 28.1 H (6-22) Glucose 174 H (80-110) mg/dL Calcium 9.0 (8.4-10.2) mg/dL Total Bilirubin 0.5 (0.2-1.3) mg/dL AST 34 (14-36) IU/L ALT 29 (<35) IU/L Alkaline Phosphatase 63 (38-126) U/L Total Creatine Kinase 114 (30-135) U/L CK-MB (CK-2) 3.98 H (<2.37) ng/mL CK-MB (CK-2) Rel Index 3.5 (1.5-5.0) % Troponin I < 0.012 (0.01-0.034) ng/mL Total Protein 7.1 (6.3-8.2) g/dL Albumin 4.3 (3.5-5.0) g/dL Globulin 2.8 (1.7-4.1) g/dL Albumin/Globulin Ratio 1.5 (1.0-2.8) Ethyl Alcohol < 10 ( - 10) mg/dL SARS-CoV-2 (PCR) (Negative) 12/26/22 Range/Units 15:10 WBC (4.5-11.0) X10^3/uL RBC (4.0-5.2) X10^6/uL Hgb (12.0-16.0) g/dL Hct (36-46) % MCV (80-100) fL MCH (26-34) PG MCHC (30-36) % RDW (11.6-14.8) % Plt Count (150-400) X10^3/uL Neut % (Auto) (50-75) % Lymph % (Auto) (25-40) % [place] % (Auto) (3-14) % Eos % (Auto) (2-4) % Baso % (Auto) (0-2) % Neut # (Auto) (8022-2546) /uL Lymph # (Auto) (6343-2830) /uL [place] # (Auto) (0-900) /uL Eos # (Auto) (0-450) /uL Baso # (Auto) (0-100) /uL PT (10.1-12.7) SECONDS INR (0.9-1.3) APTT (26-36) SECONDS Sodium (137-145) mmol/L Potassium (3.4-5.1) mmol/L Chloride (98-107) mmol/L Carbon Dioxide (22-32) mmol/L BUN (7-17) mg/dL Creatinine (0.52-1.04) mg/dL Estimated GFR (>60) mL/min BUN/Creatinine Ratio (6-22) Glucose (80-110) mg/dL Calcium (8.4-10.2) mg/dL Total Bilirubin (0.2-1.3) mg/dL AST (14-36) IU/L ALT (<35) IU/L Alkaline Phosphatase (38-126) U/L Total Creatine Kinase (30-135) U/L CK-MB (CK-2) (<2.37) ng/mL CK-MB (CK-2) Rel Index (1.5-5.0) % Troponin I (0.01-0.034) ng/mL Total Protein (6.3-8.2) g/dL Albumin (3.5-5.0) g/dL Globulin (1.7-4.1) g/dL Albumin/Globulin Ratio (1.0-2.8) Ethyl Alcohol ( - 10) mg/dL SARS-CoV-2 (PCR) Negative (Negative) Point of Care Testing Glucose POC [address] scan - head: Radiologist's Impression: [place] [id number] CT Scan Report Signed Patient: Nelli Cruz MR#: [id number] : 1940 Acct:[id number] Age/Sex: 81 / F Date of Service: 08/05/22 Loc: ED Accession Number: [id number] ?? Procedure: CT Stroke Ordering Provider: Paris Flores D.O. PROCEDURE:? CT STROKE ? INDICATIONS:? word salad/ CODE STROKE/ IN TPA WINDOW ? TECHNIQUE:? Noncontrast 4.5 mm thick angled axial sections acquired from the foramen magnum to the vertex, with coronal reformats.? For radiation dose reduction, the following was used:? automated exposure control, adjustment of mA and/or kV according to patient size.? ? COMPARISON:? None. ? FINDINGS:? Image quality:? Excellent.? ? CSF spaces:? Basal cisterns are patent.? No extra-axial fluid collections.? Ventricles are normal in size and shape.? ? Brain:? No midline shift.? No intracranial masses or hemorrhage.? No area of hypodensity in a large vascular distribution to suggest acute infarction. Periventricular hypodensity consistent with chronic microvascular ischemic change. Age-related parenchymal loss. ? Skull and face:? Calvarium and visualized facial bones are intact, without suspicious lesions.? ? Sinuses:? Visualized sinuses and mastoids are clear.? ? IMPRESSION:? No acute intracranial abnormality. Chronic microvascular ischemic disease. ? Comment: Findings were discussed with Paris Flores at 3:03 p.m. ? This study fulfills neurological imaging criteria for inclusion or exclusion of acute stroke therapies based on available published neurological imaging guidelines.? ? ? Dictated by: Terrell Rea M.D. on 08/05/2022 at 15:01 ? ? CTA - brain/neck: Radiologist's Impression: PROCEDURE:? CT ANGIO HEAD AND NECK ? INDICATIONS:? word salad ? TECHNIQUE:? After the administration of intravenous contrast, 1 mm thick sections acquired from the aortic arch through the [place] of [place].? Post-contrast 4.5 mm thick sections then re-acquired from the foramen magnum to the vertex.? 3-dimensional gxbkgrg-xbhtiuycu-sgvsptcgpz (MIP) and/or volume rendering reformats were acquired of the central intracranial vasculature and neck separately. For radiation dose reduc tion, the following was used:? automated exposure control, adjustment of mA and/or kV according to patient size.? ? COMPARISON:? None. ? FINDINGS:? Image quality:? Excellent.? ? BRAIN:? CSF spaces:? Ventricles are normal in size and shape.? Basal cisterns are patent.? No extra-axial fluid collections.? ? Brain:? No midline shift.? No intracranial bleeds or masses.? Goode-white matter interface appears intact.? Age-related volume loss and severe small vessel ischemic change. ? Skull and face:? Calvarium and facial bones appear intact, without suspicious lesions.? Orbits appear normal.? ? Sinuses:? Sinuses and mastoids are clear.? ? HEAD CT ANGIOGRAPHY:? Anterior circulation:? Intracranial internal carotid arteries are normal in size and flow.? The flow within the paired anterior cerebral arteries is normal and symmetric.? The flow within the middle cerebral arteries is normal and symmetric.? The anterior communicating artery is seen.? No aneurysms are seen.? ? Posterior circulation:? Visualized portions of the vertebral arteries demonstrate normal caliber, and join to form a normal appearing basilar artery.? Flow within the posterior cerebral arteries is normal and symmetric.? No aneurysms are seen.? ? NECK CT ANGIOGRAPHY:? Carotid system:? The great vessels demonstrate a conventional anatomy as they arise from the aortic arch.? The origins of the common carotid arteries appear patent.? The common carotid arteries demonstrate normal caliber and courses.? The bifurcation regions are both widely patent.? The internal carotid arteries demonstrate normal calibers and courses.? ? Posterior circulation:? The origins of the vertebral arteries both appear widely patent.? The more superior extracranial portions of both vertebral arteries also demonstrate normal courses and calibers.? They join to form a normal appearing basilar artery.? ? Soft tissues:? Visualized neck soft tissues demonstrate no suspicious abnormalities.? ? Bones:? No suspicious bony lesions.? Visualized cervical spine appears normally aligned.? IMPRESSION:? ? 1. Age-related volume loss and severe small vessel ischemic change. ? 2. No evidence acute intracranial process. ? 3. Unremarkable CTA head.? No stenosis, aneurysm, occlusion, or focal filling defect. ? 4. Patent internal carotids.? ? Comment: Findings were discussed with Dr. Flores on? 08.05.22 at 1539 hours. ? ? Any quantitative measurements of stenosis were performed using NASCET criteria.? ? ? Dictated by: Ephraim Chong M.D. on 08/05/2022 at 15:35 ? ? ECG Data Interpretation: Normal sinus rhythm rate 62 OR interval 160 QRS [address] changes right bundle-branch block noted no priors to compare MDM Narrative Medical decision making narrative: Patient presents with word salad last known well at 12:30 p.m. arrives just prior to 3:00 p.m.. However her symptoms improved while in the ED but nursing does report she initially had word salad. Upon my evaluation she is NIH stroke scale of 0. There was possible waxing waning but now seems to be pretty steadily improved. Head CT and CT angio are both negative. Patient not a candidate for tPA because of improved symptoms and negative NIH stroke score. MRI is done which actually does not show any acute stroke. Blood work is reassuring. She is persistently hypertensive here in the emergency department. Dr. Hector, accepts patient Discharge Plan Departure Patient Disposition: Admitted as Observation Clinical Impression: Brain TIA Admit Date/Time: 08/05/22 17:03 Admit Provider: Karel Hector
[2022-08-05 15:40] LABS: Alanine Aminotransferase 29 IU/L (<35); Albumin 4.3 g/dL (3.5-5.0); Albumin Globulin Ratio 1.5 (1.0-2.8); Alkaline Phosphatase 63 U/L (38-126); Aspartate Aminotransferase 34 IU/L (14-36); BUN Creatinine Ratio 28.1 (6-22); Bilirubin Total 0.5 mg/dL (0.2-1.3); Blood Urea Nitrogen 16 mg/dL (7-17); Carbon Dioxide 27 mmol/L (22-32); Chloride 98 mmol/L (98-107); Creatine Kinase 114 U/L (30-135); Estimated Glomerular Filt Rate > 60 mL/min (>60); Ethanol (ETOH) < 10 mg/dL; Globulin 2.8 g/dL (1.7-4.1); Glucose 174 mg/dL (80-110); HEMOLYSIS 19 (0-50); Potassium 3.7 mmol/L (3.4-5.1); Sodium 135 mmol/L (137-145); Total Protein 7.1 g/dL (6.3-8.2)
[2022-08-05 15:51] LABS: Troponin I < 0.012 ng/mL (0.01-0.034)
[2022-08-05 15:55] LABS: CKMB % Relative Index 3.5 % (1.5-5.0); Creatine Kinase MB 3.98 ng/mL (<2.37)
[2022-08-05 16:08] LABS: COVID19 -Nasal RAPID Negative (Negative)
--- NOTE | 2022-08-05 16:09 | DI.MRI.S_ITS ---
PROCEDURE: MR HEAD/BRAIN WO CON INDICATIONS: TIA TECHNIQUE: Non-contrast axial T1 spin echo, axial T2 fast spin echo, sagittal and axial FLAIR, coronal T2 fast spin echo, axial gradient echo, axial diffusion and ADC through the brain. COMPARISON: None. FINDINGS: Image quality: Excellent. CSF spaces: Ventricles appear symmetric in size and shape. Basal cisterns are patent. No extra-axial fluid collections. Brain: No intracranial bleeds or mass effects. There is cerebral volume loss for age. There are periventricular and deep white matter chronic small vessel ischemic changes. Brainstem appears normal. Diffusion-weighted images show no acute ischemic insults. No chronic ischemic insults. Normal intravascular flow voids are present. Skull and face: Calvarial bone marrow is normal in signal. Orbits are normal. Note is made of bilateral lens replacements. Sinuses: Sinuses and mastoids are clear. IMPRESSION: No findings of acute or subacute infarction can be seen. Note is made of age-appropriate brain parenchymal volume loss and chronic small vessel ischemic changes. Dictated by: Trell Ryan M.D. on 08/05/2022 at 16:26 Approved by: Trell Ryan M.D. on 08/05/2022 at 16:26
--- NOTE | 2022-08-05 17:04 | PM.HP.1 ---
History of Present Illness History of Present Illness Chief complaint: DIZZY/UNABLE TO TALK/TIRED Narrative: Ms. Cruz is an 81W with PMH breast cancer who presents with difficulty with speech. She had driven up from [facility] today and felt fine. She was dropped off around 12-12:30pm. She and her friend noticed she was all of a sudden having word salad speech. She had no other neurologic symptoms. No weakness, lightheadedness. No chest pain, dizziness, shortness of breath, abdominal pain. In the ED workup was done vitals notable for high blood pressure. NIH 0. Labs notable for WBC 7.0, hgb 14.3, plts 240. Na 135, creatinine 0.57. Trop negative. Head CT negative for acute process. Chest xray negative. CTA head/neck negative for acute process. She was given aspirin and admitted for further treatment. Patient History Medical History Adhesive capsulitis Arthralgia of multiple joints Borderline hypertension Breast cancer, right Carpal tunnel syndrome on both sides Cataract (2013) Chicken pox (~194) Chronic knee pain CTS (carpal tunnel syndrome) Dupuytren contracture Hearing loss (2012) Heart murmur Insomnia Left trigger finger Mumps (~195) Osteopenia (1998) Pulsatile abdominal mass Rheumatic fever (~194) Tinnitus (~2004) Well adult exam Surgical History Anesthesia History of carpal tunnel repair (01/2005) History of carpal tunnel repair (08/2010) History of cataract surgery (2013) Hx of right breast biopsy Status post hernia repair (1947) Family & Social History Family History Mother Hypertension Stroke Bladder cancer Father Prostate cancer Sister No problems noted. Social History: household members spouse Safety & Behavioral: Feels Safe in Current Yes Environment Been Physically Hurt or No Threatened By a Person Tobacco & Substance use: Tobacco type cigarettes Smoking Status Former smoker alcohol intake current alcohol intake frequency 0-2 drinks per day Substance Use Type does not use Meds Home Medications and Allergies Home Medications Medication Instructions Recorded Confirmed Type cholecalciferol (vitamin D3) 1 tab PO DAILY 12/24/19 08/05/22 History calcium carbonate 600 mg calcium 600 mg PO DAILY 04/02/21 08/05/22 History (1,500 mg) tablet letrozole 2.5 mg tablet 2.5 mg PO DAILY #90 tabs 11/08/21 08/05/22 Rx melatonin 1 mg tablet 5 mg PO BEDTIME 11/08/21 08/05/22 History latanoprost 0.005 % eye drops 1 drp ophthalmic (eye) DAILY 12/18/21 08/05/22 History Medigrip Thumb Splint #1 ea 04/18/22 05/24/22 Rx Allergies Allergy/AdvReac Type Severity Reaction Status Date / Time ciprofloxacin [From CIPRO] Allergy Mild RED ITCHY Verified 05/24/22 09:37 RASH / DIARRHEA Review of Systems Review of Systems Narrative: 14 systems reveiwed and negative aside from what is noted in HPI Exam Vital Signs (past 8 hours): - 08/05/22 14:39 08/05/22 15:09 08/05/22 15:15 Temperature 97.6 F Pulse Rate 72 71 Respiratory Rate 16 Blood Pressure 177/92 H 199/92 H Pulse Oximetry 98 98 Oxygen Delivery Method Room Air 08/05/22 15:15 08/05/22 15:21 08/05/22 15:21 Temperature Pulse Rate 66 68 Respiratory Rate Blood Pressure 173/79 H Pulse Oximetry 97 98 Oxygen Delivery Method 08/05/22 15:32 08/05/22 15:35 08/05/22 15:35 Temperature Pulse Rate 65 65 Respiratory Rate Blood Pressure 187/87 H Pulse Oximetry 97 97 Oxygen Delivery Method 08/05/22 15:40 08/05/22 15:40 08/05/22 15:50 Temperature Pulse Rate 64 Respiratory Rate Blood Pressure 184/88 H 167/79 H Pulse Oximetry 95 Oxygen Delivery Method 08/05/22 15:50 08/05/22 16:00 08/05/22 16:00 Temperature Pulse Rate 67 64 Respiratory Rate Blood Pressure 182/87 H Pulse Oximetry 95 96 Oxygen Delivery Method 08/05/22 16:10 08/05/22 16:10 08/05/22 16:21 Temperature Pulse Rate 69 Respiratory Rate Blood Pressure 181/88 H 188/86 H Pulse Oximetry 96 Oxygen Delivery Method 08/05/22 16:21 08/05/22 16:30 08/05/22 16:30 Temperature Pulse Rate 64 64 Respiratory Rate Blood Pressure 184/83 H Pulse Oximetry 98 97 Oxygen Delivery Method Oxygen Delivery Method Room Air Narrative Exam Narrative: GEN: no acute distress HEENT: moist mucous membranes, PERRL NECK: trachea midline, no JVD PULM: clear bilaterally, no wheezes, rhonchi, rales CV: regular rate and rhythm, no murmurs ABD: soft, nontender, nondistended, no organomegaly EXT: warm and well perfused with no edema NEURO: awake, alert, oriented no focal deficits noted, normal upper and lower extremity strength Objective Labs Result Diagrams: 08/05/22 14:59 08/05/22 14:59 Labs: Laboratory Results - last 24 hr 08/05/22 08/05/22 08/05/22 14:59 14:59 14:59 WBC 7.0 RBC 4.61 Hgb 14.3 Hct 43.1 MCV 93.4 MCH 31.0 MCHC 33.2 RDW 12.4 Plt Count 240 Neut % (Auto) 77.3 H Lymph % (Auto) 12.4 L [place] % (Auto) 8.9 Eos % (Auto) 1.0 L Baso % (Auto) 0.4 Neut # (Auto) 5400 Lymph # (Auto) 900 L [place] # (Auto) 600 Eos # (Auto) 100 Baso # (Auto) 0 PT 11.7 INR 1.0 APTT 29 Sodium 135 L Potassium 3.7 Chloride 98 Carbon Dioxide 27 BUN 16 Creatinine 0.57 Estimated GFR > 60 BUN/Creatinine Ratio 28.1 H Glucose 174 H Calcium 9.0 Total Bilirubin 0.5 AST 34 ALT 29 Alkaline Phosphatase 63 Total Creatine Kinase 114 CK-MB (CK-2) 3.98 H CK-MB (CK-2) Rel Index 3.5 Troponin I < 0.012 Total Protein 7.1 Albumin 4.3 Globulin 2.8 Albumin/Globulin Ratio 1.5 Ethyl Alcohol < 10 SARS-CoV-2 (PCR) 08/05/22 15:10 WBC RBC Hgb Hct MCV MCH MCHC RDW Plt Count Neut % (Auto) Lymph % (Auto) [place] % (Auto) Eos % (Auto) Baso % (Auto) Neut # (Auto) Lymph # (Auto) [place] # (Auto) Eos # (Auto) Baso # (Auto) PT INR APTT Sodium Potassium Chloride Carbon Dioxide BUN Creatinine Estimated GFR BUN/Creatinine Ratio Glucose Calcium Total Bilirubin AST ALT Alkaline Phosphatase Total Creatine Kinase CK-MB (CK-2) CK-MB (CK-2) Rel Index Troponin I Total Protein Albumin Globulin Albumin/Globulin Ratio Ethyl Alcohol SARS-CoV-2 (PCR) Negative Assessment & Plan Assessment & Plan narrative: 1. TIA -NIH q4h -MRI to rule out stroke -ECHO ordered -CTA head/neck with no large vessel occlusion -start aspirin/statin -permissive hypertension for acute neurologic event will be followed -check lipids, a1c -PT/OT and speech eval -tele to monitor for arrhythmia 2. History of breast cancer -letrozole CODE: Full Proxy: Karissa Estrada, friend I have utilized all available resources to reconcile the patient's home medications Time Spent With Patient Critical Care time: I spent a total of [] minutes of critical care time on this patient's care today; this time is exclusive of procedural time.
--- NOTE | 2022-08-05 18:27 | DI.ECHO.S_ITS ---
[facility] +---------+ : : [address] : [place] : : : : [id number] : : : : Phone: [phone]---------+ Echocardiogram Report + + :Name: ANNE GRANADOS Study Date: 08/06/2022 Height: 63 in : :[facility] ReadingLocation: Weight: 108 lb : : Gender: Female BSA: 1.5 m2 : :: 1940 Age: 81 yrs BP: 157/67 mmHg: :Reason For Study: TIA : :Ordering Physician: : :MADINA PEPPER Performed By: Anayeli Caldwell : :Referring: MADINA PEPPER : + + Interpretation Summary 1) Mildly increased left ventricular thickness (concentric) with normal size, normal wall motion, and normal systolic function (EF 65-70%). 2) Grossly, normal right ventricular size and function. 3) No significant valvular abnormalities. 4) No prior Echo available for comparison. Procedure: A two-dimensional transthoracic echocardiogram with color flow and Doppler was performed. The patient was in normal sinus rhythm during the exam. Left Ventricle: The left ventricle is normal in size. There is mild concentric left ventricular hypertrophy. The ejection fraction is estimated to be 65-70%. Left ventricular wall motion is normal. Diastolic parameters suggest a relaxation abnormality of the left ventricle, consistent with probable normal filling pressures. Right Ventricle: The right ventricle grossly appears normal in size with probable normal systolic function. Atria: The left atrium is mildly dilated. Doppler interrogation and injection of saline echo contrast shows no evidence for an interatrial shunt. Mitral Valve: The mitral valve is normal in structure and function. There is trace mitral regurgitation. Aortic Valve: The aortic valve is trileaflet. The aortic valve is mildly calcified. There is no aortic valve stenosis. No aortic regurgitation is present. Tricuspid Valve: The tricuspid valve is normal in structure and function. There is mild tricuspid regurgitation. The right ventricular systolic pressure is estimated to be at least 28 mmHg based on an estimated right atrial pressure of 3 mm Hg. Pulmonic Valve: The pulmonic valve leaflets are thin and pliable; valve motion is normal. There is mild pulmonic regurgitation. Great Vessels: The aortic root is normal size. The dimensions of the ascending aorta are normal. The IVC is of normal diameter and collapses greater than 50% with a sniff. This suggests a low right atrial pressure of 3 mm Hg. Pericardium/ Pleura There is no pericardial effusion. MMode/2D Measurements & Calculations LVIDd: 2.9 cm LVOT diam: 1.8 cm LVIDs: 1.8 cm Ao root diam: 2.6 cm FS: 37.9 % asc Aorta Diam: 2.7 cm EPSS: 0.10 cm IVSd: 1.1 cm LVPWd: 1.1 cm LV bauman. diameter/BSA (cm/m^2): 1.9 LV sys. diameter/BSA (cm/m^2): 1.2 LA dimension: 2.7 cm RA long axis: 4.1 cm LA A2 area: 16.9 cm2 LA A4 area: 17.2 cm2 LA length (vol): 5.3 cm LA vol: 46.9 ml LA vol index: 31.5 ml/m2 LVLs ap4: 5.4 cm LVLd ap2: 6.5 cm LVLs ap2: 5.2 cm RV Mid_phl: 2.4 cm TAPSE_phl: 2.4 cm Doppler Measurements & Calculations Ao V2 max: 162.0 cm/sec LVOT Max Waldo: 142.0 cm/sec Ao V2 mean: 100.0 cm/sec LV V1 max P.1 mmHg Ao max P.0 mmHg LV V1 VTI: 30.9 cm Ao mean P.0 mmHg ROMERO(I,D): 2.4 cm2 Ao V2 VTI: 33.0 cm ROMERO(V,D): 2.2 cm2 sev ratio: 0.94 ROMERO indexed to BSA (cm^2/m^2): 1.6 MV E max waldo: 77.1 cm/sec TR max waldo: 248.5 cm/sec MV A max waldo: 97.9 cm/sec TR max P.7 mmHg MV E/A: 0.79 PA V2 max: 122.0 cm/sec Med Peak E' Waldo: 3.2 cm/sec PA V2 mean: 77.0 cm/sec E/E' med: 24.2 PA mean P.0 mmHg Lat Peak E' Waldo: 5.3 cm/sec E/E' lat: 14.5 E/e' average: 19.3 MV dec time: 0.23 sec MVA(VTI): 3.1 cm2 MV V2 mean: 54.4 cm/sec SV(LVOT): 78.6 ml MV mean P.0 mmHg MV V2 VTI: 25.0 cm AV VR_phl: 0.88 MV P1/2t-pr_phl: 68.0 msec ROMERO(VTI)/BSA_phl: 1.6 Reading Physician:09:57 AM
--- NOTE | 2022-08-05 18:31 | PC.NURSE ---
Pt arrived from ED at 1830, escorted to room in wheelchair. A&Ox4, movement and strength equal bilaterally. no c/o pain, BP elevated otherwise VSS, see chart. Pt changed into hospital gown and socks, oriented to room and call light. Pt steady on feet and independent in the room, no bed alarm necessary at this time.
--- NOTE | 2022-08-05 18:53 | PC.NURSE ---
admit pt to AC from ER. VSS; slight HTN. pt alert and oriented. NIH 0. Pt states was aware when her speech was altered today. Pt educated about plan of care and instructed to notify RN if pt notices any return of symptoms between NIH checks. up with steady gait. denies dizziness/lightheaded. oriented to room and call light. swallowing without difficulty. given broth and water. Tele monitor on
[2022-08-05] MEDS: MELATONIN 3 MG TABLET 9 MG PO (21:33)
[2022-08-05] MEDS: HEPARIN 5,000 UNIT/ML VIAL 5000 UNIT SUBCUT (21:33)
[2022-08-05] MEDS: ATORVASTATIN 20 MG TABLET 40 MG PO (21:33)
[2022-08-06 02:00] VITALS: BP 171/66; PULSE 68; RESP 16; TEMP 36.6; O2SAT 97
[2022-08-06 03:56] LABS: Appearance Urine UA CLEAR; Bilirubin Urine UA NEGATIVE (NEGATIVE); Color Urine UA YELLOW; Glucose Urine UA NEGATIVE (Negative); Ketones Urine UA NEGATIVE (NEGATIVE); Leukocyte Esterase Urine UA NEGATIVE (NEGATIVE); Nitrite Urine UA NEGATIVE (Negative); Occult Blood Urine UA NEGATIVE (Negative); Protein Urine UA NEGATIVE (Negative); Specific Gravity Urine UA <=1.005 (1.000-1.035); Urobilinogen Urine UA 0.2 E.U./dL (0.2)
[2022-08-06 03:59] LABS: UR Morphine/Opiate cutoff 300 Negative (Negative); Ur Creatinine Normal (Normal); Ur Specific Gravity Normal (Normal); Urine Amphetamines Negative (Negative); Urine Barbiturates Negative (Negative); Urine Benzodiazepines Negative (Negative); Urine Cocaine Negative (Negative); Urine MDMA Negative (Negative); Urine Methadone Negative (Negative); Urine Methamphetamines Negative (Negative); Urine Oxycodone Negative (Negative); Urine Phencyclidine Negative (Negative); Urine Tetrahydrocannabinol Negative (Negative); Urine Tricyclic Antidepressant Negative (Negative); Urine pH Normal (Normal)
[2022-08-06 04:09] LABS: Bacteria Urine None Seen; Culture Indicated Urine Cult Not Indicated; RBC Urine None Seen (0-5/HPF); Squamous Epithelial Cell Urine 0-1 /HPF (0-5/HPF); Urine Comments Microscopic Normal; WBC Urine None Seen (0-5/HPF)
[2022-08-06 05:29] VITALS: BP 155/76; PULSE 64; RESP 16; TEMP 36.5; O2SAT 94
[2022-08-06 06:00] VITALS: O2SAT 94
[2022-08-06 06:20] LABS: Add Manual Diff / Slide Review NO; Basophils Absolute Auto 100 /uL (0-100); Eosinophils Absolute Auto 100 /uL (0-450); Eosinophils Percent Auto 1.6 % (2-4); Hematocrit 43.1 % (36-46); Hemoglobin 14.4 g/dL (12.0-16.0); Lymphocytes Absolute Auto 900 /uL (1100-4500); Lymphocytes Percent Auto 16.3 % (25-40); Mean Corpuscular HGB Conc 33.3 % (30-36); Mean Corpuscular Hemoglobin 30.9 PG (26-34); Mean Corpuscular Volume 92.7 fL (80-100); Monocytes Absolute Auto 500 /uL (0-900); Monocytes Percent Auto 10.1 % (3-14); Neutrophils Absolute Auto 3800 /uL (1500-7000); Platelet Count 219 X10^3/uL (150-400); Red Blood Cell Count 4.65 X10^6/uL (4.0-5.2); Red Cell Distribution Width 12.6 % (11.6-14.8); White Blood Cell Count 5.3 X10^3/uL (4.5-11.0)
[2022-08-06 06:45] LABS: BUN Creatinine Ratio 23.3 (6-22); Blood Urea Nitrogen 10 mg/dL (7-17); Calcium 8.5 mg/dL (8.4-10.2); Carbon Dioxide 26 mmol/L (22-32); Chloride 102 mmol/L (98-107); Cholesterol 170 mg/dL (140-199); Estimated Glomerular Filt Rate > 60 mL/min (>60); Glucose 91 mg/dL (80-110); HDL Cholesterol 78 mg/dL (40-60); HEMOLYSIS < 15 (0-50); LDL Cholesterol Calculated 80 mg/dL (<100); Potassium 3.9 mmol/L (3.4-5.1); Sodium 135 mmol/L (137-145); Triglycerides 58 mg/dL (35-150)
[2022-08-06 06:54] LABS: Hemoglobin A1C% w Est Avg Glu 5.9 % (4.0-6.0)
[2022-08-06 08:26] VITALS: BP 116/63; PULSE 70; RESP 17; TEMP 36.1; O2SAT 95
--- NOTE | 2022-08-06 09:26 | PT.IIE ---
Surgical History (Last Reviewed 08/05/22 @ 17:05 by Karel Hector MD) Anesthesia History of carpal tunnel repair (01/2005) History of carpal tunnel repair (08/2010) History of cataract surgery (2013) Hx of right breast biopsy Status post hernia repair (1947) Medical History (Last Reviewed 08/05/22 @ 17:05 by Karel Hector MD) Adhesive capsulitis Arthralgia of multiple joints Borderline hypertension Breast cancer, right Carpal tunnel syndrome on both sides Cataract (2013) Chicken pox (~1944) Chronic knee pain CTS (carpal tunnel syndrome) Dupuytren contracture Hearing loss (2012) Heart murmur Insomnia Left trigger finger Mumps (~1954) Osteopenia (1998) Pulsatile abdominal mass Rheumatic fever (~1942) Tinnitus (~2004) Well adult exam Physical Therapy Inpatient Evaluation/Re-Eval M1 PT/OT-IP Prior Functional Status Start: 08/06/22 13:02 Freq: NEEDED Status: Active Protocol: Document 08/06/22 09:26 AB (Rec: 08/06/22 13:11 AB [id number]) Medical Review Prior Functional Status Medical History Reviewed Yes Communication able to make needs known Mobility and Gait pt stated that she is independent with all mobilities and ambulation without AD Social History Household Members none Living Arrangements House Number of Floors (Floors) Two Floors Number of Stairs To Enter/Railing? 6 steps descending B rails to enter the house 14 steps B rails descending to get to the office/guest room Home Environment Standard Height Toilet,Walk in Shower Home Equipment Grab Bars In Shower Additional Social History Comment stated that she has friends that can assist her if needed M2 PT-IP Current Condition Start: 08/06/22 13:02 Freq: NEEDED Status: Active Protocol: Document 08/06/22 09:26 AB (Rec: 08/06/22 13:11 AB [id number]) Physical Therapy Current Condition Current Condition Evaluation Date 08/06/22 Treatment Diagnosis TIA; difficulty in walking Onset Date 08/05/22 M3 PT-IP Subjective Start: 08/06/22 13:02 Freq: NEEDED Status: Active Protocol: Document 08/06/22 09:26 AB (Rec: 08/06/22 13:11 AB [id number]) Subjective Physical Therapy Visit Type Type Initial Evaluation Visit Start Time 09:26 Visit Stop Time 09:46 Total Visit Minutes 20 Number of MIRROR INSPECTOR Visits 0 Physical Therapy Visit Comments Patient Goals agreeable to do PT M4 PT-IP Mobility and Gait Start: 08/06/22 13:02 Freq: NEEDED Status: Active Protocol: Document 08/06/22 09:26 AB (Rec: 08/06/22 13:11 AB [id number]) PT-Bed Mobility Assessment Supine to Sit Supine to Sit Independent PT-Transfer Assessment Sit to and From Stand Sit to and from Stand Standby Assistance Equipment Transfer Assistive Device None Orthotic/Prosthetic Devices or Brace: No Comments Mobility Comments pt completed supine to sit independent. completed sit to stand SBA and ambulated in room SBA. agreed to ambulate in the hallway and completed ~ 200 ft without AD SBA. presents with unsteady gait but without LOB. completed up /down steps using B rails SBA. pt ambulated back to her room SBA. pt went back to bed . positoned with call light and table placed within reach. Gait Assessment Gait Gait Assistance Required: Standby Assistance Distance (Feet) 200 Assistive Devices Assistive Device None Orthotic/Prosthetic Devices or Brace: No Factors Limiting Gait Function Factors Limiting Gait Function Decreased Activity Tolerance, Poor Balance Stair Climbing Assessment Evaluation Level of Assist On Stairs Standby Assistance Devices Stair Climbing Assistive Devices Left Railing,Right Railing Technique/Endurance Stair Climbing Direction Ascend and Descend Stair Climbing Technique Step to Step Number of Steps Climbed 3 Query Text: Stair Climbing Set # Repetitions (reps) 3 PT-Balance Assessment Sitting Balance and Reactions Static Sitting Balance Ability Normal Dynamic Sitting Balance Ability Normal Standing Balance and Reactions Static Standing Balance Ability Good Dynamic Standing Balance Ability Good Device Used without AD M5 PT-IP Objective Assessments Start: 08/06/22 13:02 Freq: NEEDED Status: Active Protocol: Document 08/06/22 09:26 AB (Rec: 08/06/22 13:11 AB [id number]) Orientation Orientation/Cognition Level of Alertness Alert Orientation Name,Place,Situation Language Function Ability No Deficits Noted Safety Awareness Understands Safety Issues Memory Description No Deficits Noted Gross Range of Motion Lower Extremity ROM Assessment Within Functional Limits Strength Lower Extremity Strength Assessment Within Functional Limits Coordination Assessment Gross Coordination Gross Coordination WNL Sensation Assessment Sensation Gross Sensation WNL Muscle Tone Muscle Tone WNL Yes M6 PT-IP Treatment Start: 08/06/22 13:02 Freq: NEEDED Status: Active Protocol: Document 08/06/22 09:26 AB (Rec: 08/06/22 13:11 AB [id number]) Physical Therapy Treatment Education Education Provided Safety M7 PT-IP Assessment and Plan Start: 08/06/22 13:02 Freq: NEEDED Status: Active Protocol: Document 08/06/22 09:26 AB (Rec: 08/06/22 13:11 AB [id number]) PT Summary Assessment and Plan Potential Rehabilitation Potential Good Status of Condition at Evaluation Stable Summary Impairments Pain,ROM,Strength,Balance, Coordination,Sensation,Tone, Cognition,Bed Mobility, Transfers,Gait,Activity Tolerance Progress Towards Goals Safe For Discharge Assessment Summary PT eval completed and requiring SBA with mobility for safety. No further PT intervention indicated at this time. Frequency of Treatment Frequency Of Treatment Discharge Recommendations To Nursing Amount of Assist Needed Standby Assistance Discharge Recommendations PT Discharge Recommendations Home Transportation Needs at Discharge Private Vehicle
[2022-08-06] MEDS: LETROZOLE 2.5 MG TABLET PO (09:35)
[2022-08-06] MEDS: ASPIRIN EC 81 MG TABLET PO (09:35)
[2022-08-06] MEDS: HEPARIN 5,000 UNIT/ML VIAL 5000 UNIT SUBCUT (09:35)
[2022-08-06 10:00] VITALS: O2SAT 94
[2022-08-06 11:48] VITALS: BP 149/86; PULSE 68; RESP 18; TEMP 36.6; O2SAT 97
--- NOTE | 2022-08-06 12:27 | PC.NURSE ---
Discharge note: Patient discharged per MD order, cleared by PT and ST. NIH 0. Discharge instructions given to patient, discussed importance of F/U with PMD in 2-3 days, s/sx of stroke, importance of new Rx medication adherence, and home safety. Patient verbalized understanding of instructions. Home via private vehicle accompanied by friend. Rxs (2) handed to patient.
--- NOTE | 2022-08-06 17:35 | PM.DS.1 ---
History of Present Illness History of Present Illness Chief complaint: DIZZY/UNABLE TO TALK/TIRED Narrative: Ms. Cruz is an 81W with PMH breast cancer who presents with difficulty with speech. She had driven up from [employer] [place] today and felt fine. She was dropped off around 12-12:30pm. She and her friend noticed she was all of a sudden having word salad speech. She had no other neurologic symptoms. No weakness, lightheadedness. No chest pain, dizziness, shortness of breath, abdominal pain. In the ED workup was done vitals notable for high blood pressure. NIH 0. Labs notable for WBC 7.0, hgb 14.3, plts 240. Na 135, creatinine 0.57. Trop negative. Head CT negative for acute process. Chest xray negative. CTA head/neck negative for acute process. She was given aspirin and admitted for further treatment. Discharge Providers Provider Date of admission: 08/05/22 17:03 Discharge Date: 08/06/22 Primary care physician: Iker Arreaga, Consults: 08/05/22 18:27 Consult to Occupational Therapy Evaluate & Treat Comment: Physician Instructions: Evaluate and treat Consult to Physical Therapy Evaluate & Treat Comment: Physician Instructions: Evaluate and Treat Consult to Speech Therapy Evaluate & Treat Comment: Physician Instructions: Evaluate and treat Discharge provider: Karel Hector MD Summary Hospital Course Discharge Diagnosis: 1. TIA 2. History of breast cancer Hospital Course: Ms. Cruz was admitted for garbled speech that resolved prior to hospitalization. She had workup with MRI, telemetry, ECHO, and CTA head/neck that all showed no acute process. She was at her baseline during her hospitalization and suspected of having a TIA. She is encouraged to take aspirin and atorvastatin and prescribed both. She is encouraged to follow up with her PCP within one week. Exam Vital Signs (past 8 hours): - 08/06/22 10:00 08/06/22 11:48 Temperature 97.9 F Pulse Rate 68 Respiratory Rate 18 Blood Pressure 149/86 H Pulse Oximetry 94 97 Oxygen Delivery Method Room Air Oxygen Flow Rate 0 Oxygen Delivery Method Room Air Oxygen Flow Rate 0 Narrative Exam Narrative: GEN: no acute distress HEENT: moist mucous membranes, PERRL NECK: trachea midline, no JVD PULM: clear bilaterally, no wheezes, rhonchi, rales CV: regular rate and rhythm, no murmurs ABD: soft, nontender, nondistended, no organomegaly EXT: warm and well perfused with no edema NEURO: awake, alert, oriented no focal deficits noted, normal upper and lower extremity strength Objective Labs Result Diagrams: 08/06/22 05:33 08/06/22 05:33 Labs: Laboratory Results - last 24 hr 08/06/22 08/06/22 08/06/22 03:40 03:40 05:33 WBC 5.3 RBC 4.65 Hgb 14.4 Hct 43.1 MCV 92.7 MCH 30.9 MCHC 33.3 RDW 12.6 Plt Count 219 Neut % (Auto) 71.0 Lymph % (Auto) 16.3 L [place] % (Auto) 10.1 Eos % (Auto) 1.6 L Baso % (Auto) 1.0 Neut # (Auto) 3800 Lymph # (Auto) 900 L [place] # (Auto) 500 Eos # (Auto) 100 Baso # (Auto) 100 Sodium Potassium Chloride Carbon Dioxide BUN Creatinine Estimated GFR BUN/Creatinine Ratio Glucose Hemoglobin A1c Calcium Triglycerides Cholesterol LDL Cholesterol, Calc HDL Cholesterol Urine Color Yellow Urine Appearance Clear Urine pH 7.0 Ur Specific [place] <=1.005 Urine Protein Negative Urine Glucose (UA) Negative Urine Ketones Negative Urine Occult Blood Negative Urine Nitrate Negative Urine Bilirubin Negative Urine Urobilinogen 0.2 Ur Leukocyte Esterase Negative Urine RBC None seen Urine WBC None seen Ur Squamous Epith Cells 0-1 /hpf Urine Bacteria None seen Ur Culture Indicated? Cult not indicated Micro UA Comment Microscopic normal U Opiates 300ng/mL cut Negative Ur Oxycodone Screen Negative Urine Methadone Screen Negative Ur Barbiturates Screen Negative U Tricyclic Antidepress Negative Ur Phencyclidine Scrn Negative Ur Amphetamines Screen Negative U Methamphetamines Scrn Negative Ur MDMA Scrn (Ecstasy) Negative U Benzodiazepines Scrn Negative Urine Cocaine Screen Negative U Marijuana (THC) Screen Negative 08/06/22 08/06/22 05:33 05:33 WBC RBC Hgb Hct MCV MCH MCHC RDW Plt Count Neut % (Auto) Lymph % (Auto) [place] % (Auto) Eos % (Auto) Baso % (Auto) Neut # (Auto) Lymph # (Auto) [place] # (Auto) Eos # (Auto) Baso # (Auto) Sodium 135 L Potassium 3.9 Chloride 102 Carbon Dioxide 26 BUN 10 Creatinine 0.43 L Estimated GFR > 60 BUN/Creatinine Ratio 23.3 H Glucose 91 Hemoglobin A1c 5.9 Calcium 8.5 Triglycerides 58 Cholesterol 170 LDL Cholesterol, Calc 80 HDL Cholesterol 78 H Urine Color Urine Appearance Urine pH Ur Specific [place] Urine Protein Urine Glucose (UA) Urine Ketones Urine Occult Blood Urine Nitrate Urine Bilirubin Urine Urobilinogen Ur Leukocyte Esterase Urine RBC Urine WBC Ur Squamous Epith Cells Urine Bacteria Ur Culture Indicated? Micro UA Comment U Opiates 300ng/mL cut Ur Oxycodone Screen Urine Methadone Screen Ur Barbiturates Screen U Tricyclic Antidepress Ur Phencyclidine Scrn Ur Amphetamines Screen U Methamphetamines Scrn Ur MDMA Scrn (Ecstasy) U Benzodiazepines Scrn Urine Cocaine Screen U Marijuana (THC) Screen [facility] Medical History Adhesive capsulitis Arthralgia of multiple joints Borderline hypertension Breast cancer, right Carpal tunnel syndrome on both sides Cataract (2013) Chicken pox (~194) Chronic knee pain CTS (carpal tunnel syndrome) Dupuytren contracture Hearing loss (2012) Heart murmur Insomnia Left trigger finger Mumps (~1954) Osteopenia (1998) Pulsatile abdominal mass Rheumatic fever (~1942) Tinnitus (~2004) Well adult exam Surgical History Anesthesia History of carpal tunnel repair (01/2005) History of carpal tunnel repair (08/2010) History of cataract surgery (2013) Hx of right breast biopsy Status post hernia repair (1947) Family History Mother Hypertension Stroke Bladder cancer Father Prostate cancer Sister No problems noted. Social History marital status: household members: none Smoking Status: Former smoker Tobacco: How many years used: 15 quit status: has quit before alcohol intake: current substance use type: does not use Discharge Plan Discharge Plan Patient Disposition: Home Provider Discharge Comment: Ms. Cruz came in to the hospital because of speech difficulties that improved. She likely had a TIA. She should take aspirin and atorvastatin daily to reduce her risk of stroke. Discharge orders & Medications Prescriptions: New aspirin 81 mg Tablet,Delayed Release (Dr/Ec) 81 mg PO DAILY Qty: 30 0RF atorvastatin 40 mg tablet 40 mg PO BEDTIME Qty: 30 0RF Continued (DME) Medigrip Thumb Splint See Rx Instructions .Route .MEDSUPPLY Qty: 1 0RF Rx Instructions: As directed cholecalciferol (vitamin D3) 1 tab PO DAILY calcium carbonate 600 mg calcium (1,500 mg) tablet 600 mg PO DAILY Label Comments: Remegel melatonin 1 mg tablet 5 mg PO BEDTIME letrozole 2.5 mg tablet 2.5 mg PO DAILY Qty: 90 3RF latanoprost 0.005 % Drops 1 drp OPHTHALMIC (EYE) DAILY Follow up/Referrals: Iker Arreaga, [Primary Care Provider] - 3-5 Days Diet/Activity/Treatments Diet: Regular Discharge Data Primary Care Provider: Iker Arreaga Attending Provider: Karel Hector VTE Deep Vein Thrombosis/Pulmonary Embolism Present on Admission: No
== END 2022-08-06 12:31 | disposition home or self-care (01) ==
LOC: ED 14:50 → AC 17:05
PROVIDERS: Admitting Provider Internal Medicine; Emergency Provider Emergency Medicine; Family Provider Family Medicine; PCP Family Medicine; Visit Provider Internal Medicine
DX: G45.9 Transient cerebral ischemic attack, unspecified (principal); R29.700 NIHSS score 0; Z85.3 Personal history of malignant neoplasm of breast; Z20.822 Contact with and (suspected) exposure to COVID-19
CPT/HCPCS: 36415; 70450; 70496; 70498; 70551; 71045; 80048; 80053; 80061; 80305; 80320; 81001; 82550; 82553; 82962; 83036; 84484; 85025; 85610; 85730; 87635; 93005; 93306; 97161; 99285; C9803; G0378; J1644; Q9967

== ENCOUNTER → 2022-09-10 12:04 | Outpatient (CLI) | payer OTHER, SELFPAY ==
[2022-08-05 18:05] VITALS: BMI 19.1
[2022-09-10 12:17] LABS: Add Manual Diff / Slide Review NO; Basophils Absolute Auto 0 /uL (0-100); Basophils Percent Auto 0.5 % (0-2); Eosinophils Absolute Auto 100 /uL (0-450); Eosinophils Percent Auto 1.1 % (2-4); Hematocrit 44.1 % (36-46); Hemoglobin 14.7 g/dL (12.0-16.0); Lymphocytes Absolute Auto 900 /uL (1100-4500); Lymphocytes Percent Auto 11.4 % (25-40); Mean Corpuscular HGB Conc 33.4 % (30-36); Mean Corpuscular Hemoglobin 31.1 PG (26-34); Mean Corpuscular Volume 93.3 fL (80-100); Monocytes Absolute Auto 500 /uL (0-900); Monocytes Percent Auto 6.3 % (3-14); Neutrophils Absolute Auto 6400 /uL (1500-7000); Neutrophils Percent Auto 80.7 % (50-75); Platelet Count 242 X10^3/uL (150-400); Red Blood Cell Count 4.73 X10^6/uL (4.0-5.2); Red Cell Distribution Width 12.4 % (11.6-14.8); White Blood Cell Count 7.9 X10^3/uL (4.5-11.0)
[2022-09-10 13:42] LABS: Alanine Aminotransferase 41 IU/L (<35); Albumin 4.5 g/dL (3.5-5.0); Albumin Globulin Ratio 1.6 (1.0-2.8); Alkaline Phosphatase 71 U/L (38-126); Aspartate Aminotransferase 43 IU/L (14-36); BUN Creatinine Ratio 26.9 (6-22); Bilirubin Total 0.5 mg/dL (0.2-1.3); Blood Urea Nitrogen 14 mg/dL (7-17); Calcium 9.3 mg/dL (8.4-10.2); Carbon Dioxide 27 mmol/L (22-32); Chloride 97 mmol/L (98-107); Estimated Glomerular Filt Rate > 60 mL/min (>60); Globulin 2.8 g/dL (1.7-4.1); Glucose 135 mg/dL (80-110); HEMOLYSIS 22 (0-50); Sodium 136 mmol/L (137-145); Total Protein 7.3 g/dL (6.3-8.2)
== END ==
PROVIDERS: Internal Medicine Medical Oncology; Family Provider Family Medicine; PCP Family Medicine; Referring Provider Family Medicine; Visit Provider Family Medicine
DX: R03.0 Elevated blood-pressure reading, without diagnosis of hypertension (principal); C50.911 Malignant neoplasm of unspecified site of right female breast
CPT/HCPCS: 36415; 80053; 85025

== ENCOUNTER → 2022-12-03 07:07 | Outpatient (CLI) | payer OTHER, SELFPAY ==
[2022-08-05 18:05] VITALS: BMI 19.1
[2022-12-03 09:02] LABS: Alanine Aminotransferase 59 IU/L (<35); Albumin Globulin Ratio 1.8 (1.0-2.8); Alkaline Phosphatase 74 U/L (38-126); Aspartate Aminotransferase 50 IU/L (14-36); BUN Creatinine Ratio 27.1 (6-22); Bilirubin Total 0.8 mg/dL (0.2-1.3); Blood Urea Nitrogen 13 mg/dL (7-17); Calcium 9.3 mg/dL (8.4-10.2); Carbon Dioxide 26 mmol/L (22-32); Chloride 101 mmol/L (98-107); Cholesterol 118 mg/dL (140-199); Estimated Glomerular Filt Rate > 60 mL/min (>60); Globulin 2.2 g/dL (1.7-4.1); Glucose 88 mg/dL (80-110); HDL Cholesterol 79 mg/dL (40-60); HEMOLYSIS < 15 (0-50); LDL Cholesterol Calculated 33 mg/dL (<100); Potassium 4.5 mmol/L (3.4-5.1); Sodium 134 mmol/L (137-145); Total Protein 6.2 g/dL (6.3-8.2); Triglycerides 29 mg/dL (35-150)
[2022-12-04 07:36] LABS: x Labcorp Estim. Avg Glu (eAG) 126 mg/dL (.)
== END ==
PROVIDERS: Family Provider Family Medicine; PCP Family Medicine; Referring Provider Family Medicine; Visit Provider Family Medicine
DX: E78.5 Hyperlipidemia, unspecified; I10 Essential (primary) hypertension; R73.03 Prediabetes
CPT/HCPCS: 36415; 80053; 80061; 83036

== ENCOUNTER → 2023-06-02 15:39 | Outpatient (CLI) | payer OTHER, SELFPAY ==
[2022-08-05 18:05] VITALS: BMI 19.1
--- NOTE | 2023-06-02 | DI.MG.S_ITS ---
BILATERAL DIGITAL SCREENING MAMMOGRAM 3D/2D WITH CAD POST LUMPECTOMY: 06/02/2023 CLINICAL: Routine screening. Personal history of right breast cancer. Comparison is made to exams dated: 05/23/2022 mammogram, 05/21/2021 mammogram, and 10/13/2019 mammogram - [facility]. Both breasts are heterogeneously dense, which may obscure small masses (category c / 51-75% glandular tissue). Current study was also evaluated with a Computer Aided Detection (CAD) system. There is a benign calcification in the right breast. There also are benign post operative findings in the right breast. No significant masses, calcifications, or other findings are seen in either breast. There has been no significant interval change. IMPRESSION: BENIGN There is no mammographic evidence of malignancy. A 1 year screening mammogram is recommended. This exam was interpreted at Station ID: [id number]. NOTE: For mammograms, a report in lay terms will be sent to the patient. Approximately 15% of breast malignancies will not be visualized mammographically. In the management of a palpable breast mass, a negative mammogram must not discourage biopsy of a clinically suspicious lesion. Electronically Signed By: Camden kang/brenton:06/03/2023 11:42:58 letter sent: Normal Exam ACR BI-RADS Category 2: Benign Finding(s) [id number]
[2023-06-02 18:35] LABS: Appearance Urine UA CLEAR; Bilirubin Urine UA NEGATIVE (NEGATIVE); Color Urine UA YELLOW; Glucose Urine UA NEGATIVE (Negative); Ketones Urine UA NEGATIVE (NEGATIVE); Leukocyte Esterase Urine UA NEGATIVE (NEGATIVE); Nitrite Urine UA NEGATIVE (Negative); Occult Blood Urine UA NEGATIVE (Negative); Protein Urine UA NEGATIVE (Negative); Urobilinogen Urine UA 0.2 E.U./dL (0.2)
[2023-06-02 18:40] LABS: pH Urine UA 5.5 (4.5-8.0)
[2023-06-02 18:45] LABS: Bacteria Urine None Seen; Culture Indicated Urine Cult Not Indicated; RBC Urine None Seen (0-5/HPF); Squamous Epithelial Cell Urine None Seen (0-5/HPF); WBC Urine None Seen (0-5/HPF)
== END ==
PROVIDERS: Family Provider Family Medicine; PCP Family Medicine; Referring Provider Family Medicine; Visit Provider Family Medicine
DX: Z12.31 Encounter for screening mammogram for malignant neoplasm of breast (principal); Z00.00 Encounter for general adult medical examination without abnormal findings; E78.5 Hyperlipidemia, unspecified; I10 Essential (primary) hypertension; C50.911 Malignant neoplasm of unspecified site of right female breast
CPT/HCPCS: 77063; 77067; 81001

== ENCOUNTER → 2023-07-23 10:56 | Outpatient (CLI) | payer OTHER, SELFPAY ==
[2022-08-05 18:05] VITALS: BMI 19.1
[2023-07-23 11:41] LABS: Influenza A - CEPHEID Flu A NEGATIVE (NEGATIVE); Influenza B - CEPHEID Flu B NEGATIVE (NEGATIVE); Respiratory Syncytial Virus POSITIVE (Negative)
[2023-07-23 11:42] LABS: COVID-19 CEPHEID 4-PLEX PCR Negative (Negative)
== END ==
PROVIDERS: Family Provider Family Medicine; PCP Family Medicine; Visit Provider Nurse Practitioner Family
DX: R05.1 Acute cough (principal)
CPT/HCPCS: 0241U

== ENCOUNTER → 2023-10-16 07:00 | Outpatient (CLI) | payer OTHER, SELFPAY ==
[2022-08-05 18:05] VITALS: BMI 19.1
[2023-10-16 07:36] LABS: Add Manual Diff / Slide Review NO; Basophils Absolute Auto 0 /uL (0-100); Eosinophils Absolute Auto 100 /uL (0-450); Eosinophils Percent Auto 2.7 % (2-4); Hemoglobin 14.4 g/dL (12.0-16.0); Lymphocytes Absolute Auto 800 /uL (1100-4500); Lymphocytes Percent Auto 17.1 % (25-40); Mean Corpuscular HGB Conc 33.5 % (30-36); Mean Corpuscular Hemoglobin 31.6 PG (26-34); Mean Corpuscular Volume 94.4 fL (80-100); Monocytes Absolute Auto 600 /uL (0-900); Monocytes Percent Auto 12.1 % (3-14); Neutrophils Absolute Auto 3100 /uL (1500-7000); Neutrophils Percent Auto 67.1 % (50-75); Platelet Count 212 X10^3/uL (150-400); Red Blood Cell Count 4.55 X10^6/uL (4.0-5.2); Red Cell Distribution Width 12.5 % (11.6-14.8); White Blood Cell Count 4.7 X10^3/uL (4.5-11.0)
[2023-10-16 07:56] LABS: Hemoglobin A1C% w Est Avg Glu 5.8 % (4.0-6.0)
[2023-10-16 07:59] LABS: Alanine Aminotransferase 39 IU/L (<35); Albumin 4.1 g/dL (3.5-5.0); Albumin Globulin Ratio 1.6 (1.0-2.8); Alkaline Phosphatase 72 U/L (38-126); Aspartate Aminotransferase 43 IU/L (14-36); BUN Creatinine Ratio 33.3 (6-22); Bilirubin Total 0.9 mg/dL (0.2-1.3); Blood Urea Nitrogen 20 mg/dL (7-17); Calcium 9.3 mg/dL (8.4-10.2); Carbon Dioxide 30 mmol/L (22-32); Chloride 104 mmol/L (98-107); Cholesterol 121 mg/dL (140-199); Estimated Glomerular Filt Rate > 60 mL/min (>60); Globulin 2.6 g/dL (1.7-4.1); Glucose 92 mg/dL (80-110); HDL Cholesterol 70 mg/dL (40-60); HEMOLYSIS < 15 (0-50); LDL Cholesterol Calculated 44 mg/dL (<100); Potassium 4.9 mmol/L (3.4-5.1); Sodium 137 mmol/L (137-145); Total Protein 6.7 g/dL (6.3-8.2); Triglycerides 37 mg/dL (35-150)
[2023-10-16 08:30] LABS: TSH w/ Reflex to FT4 1.27 uIU/mL (0.47-4.68)
[2023-10-16 11:55] LABS: Creatinine Urine Random 88.1 mg/dL
[2023-10-16 11:59] LABS: Microalbumin Urine Random 0.8 mg/dL (0-1.6)
[2023-10-17 06:36] LABS: Apolipoprotein B 47 mg/dL (<90)
== END ==
LOC: LAB 07:02
PROVIDERS: Family Provider Family Medicine; PCP Family Medicine; Referring Provider Family Medicine; Visit Provider Family Medicine
DX: Z00.00 Encounter for general adult medical examination without abnormal findings (principal); I10 Essential (primary) hypertension; E78.00 Pure hypercholesterolemia, unspecified; M85.80 Other specified disorders of bone density and structure, unspecified site; C50.919 Malignant neoplasm of unspecified site of unspecified female breast; E78.5 Hyperlipidemia, unspecified; G45.9 Transient cerebral ischemic attack, unspecified
CPT/HCPCS: 36415; 80053; 80061; 82043; 82172; 82570; 83036; 84443; 85025

== ENCOUNTER → 2023-10-17 14:14 | Outpatient (CLI) | payer OTHER, SELFPAY ==
[2022-08-05 18:05] VITALS: BMI 19.1
[2023-10-20 13:22] LABS: Fecal Immunochemical Test Negative (Negative)
== END ==
PROVIDERS: Family Provider Family Medicine; PCP Family Medicine; Referring Provider Family Medicine; Visit Provider Family Medicine
DX: Z00.00 Encounter for general adult medical examination without abnormal findings (principal); C50.919 Malignant neoplasm of unspecified site of unspecified female breast; E78.5 Hyperlipidemia, unspecified; I10 Essential (primary) hypertension
CPT/HCPCS: 82274

== ENCOUNTER → 2023-10-23 09:50 | Outpatient (CLI) | payer OTHER, SELFPAY ==
[2022-08-05 18:05] VITALS: BMI 19.1
--- NOTE | 2023-10-23 09:53 | DI.RAD.S_ITS ---
PROCEDURE: XR HIP W PEL IF DONE RT 2V INDICATIONS: chronic right shoulder, hip and back pain TECHNIQUE: AP pelvis with lateral view(s) of the right hip(s). COMPARISON: None. FINDINGS: Bones: No fractures or dislocations. Pelvic ring appears intact. No suspicious bony lesions. Moderate to severe right hip degenerative arthritis with osteophytes and medial joint space loss. Soft tissues: The visualized bowel gas pattern is normal. No suspicious soft tissue calcifications. IMPRESSION: Moderate to severe degenerative arthritis of the right hip. Dictated by: Ephraim Chong M.D. on 10/23/2023 at 19:54 Approved by: Ephraim Chong M.D. on 10/23/2023 at 19:55
--- NOTE | 2023-10-23 09:53 | DI.RAD.S_ITS ---
PROCEDURE: XR LUMBAR SPINE MIN 4V INDICATIONS: chronic right shoulder, hip and back pain TECHNIQUE: 5 views of the lumbar spine were acquired, including bilateral oblique views. COMPARISON: None. FINDINGS: Bones: 5 nonrib-bearing vertebrae are present. S shaped scoliotic curvature. Advanced degenerative disc space loss and multilevel facet arthropathy. Anterolisthesis of L5 on S1 measures 12 mm. Anterolisthesis of L4 on L5 measures 6 mm. Trace anterolisthesis of L3 on L4. Trace retrolisthesis of L1 on L2. No vertebral body compression fractures. No suspicious bony lesions. Soft tissues: Overlying bowel gas pattern is normal. No suspicious soft tissue calcifications. Oblique images: No pars defects. IMPRESSION: 1. Advanced degenerative arthritis. 2. S shaped scoliotic curvature, multilevel listhesis 3. Multilevel facet arthropathy. Dictated by: Ephraim Chogn M.D. on 10/23/2023 at 19:51 Approved by: Ephraim Chong M.D. on 10/23/2023 at 19:53
--- NOTE | 2023-10-23 09:53 | DI.RAD.S_ITS ---
PROCEDURE: XR SHOULDER RT MIN 2V INDICATIONS: chronic right shoulder, hip and back pain TECHNIQUE: 3 views of the shoulder were acquired. COMPARISON: [facility], CR, XR SHOULDER LT MIN 2V, 04/02/2021, 13:50. FINDINGS: Bones: No fractures or dislocations. No suspicious bony lesions. Visualized ribs appear intact. Soft tissues: No suspicious soft tissue calcifications. IMPRESSION: No evidence acute bony abnormality. If clinical suspicion and/or symptoms persist, further assessment with repeat plain films, or advanced imaging (e.g., CT, MRI, or bone scan) may be helpful for further assessment. Dictated by: Ephraim Chong M.D. on 10/23/2023 at 19:53 Approved by: Ephraim Chong M.D. on 10/23/2023 at 19:54
== END ==
PROVIDERS: Family Provider Family Medicine; PCP Family Medicine; Referring Provider Family Medicine; Visit Provider Family Medicine
DX: M16.11 Unilateral primary osteoarthritis, right hip (principal); M47.816 Spondylosis without myelopathy or radiculopathy, lumbar region; M41.9 Scoliosis, unspecified; M25.551 Pain in right hip; M25.50 Pain in unspecified joint; G89.29 Other chronic pain
CPT/HCPCS: 72110; 73030; 73502

== ENCOUNTER → 2023-12-18 06:59 | Outpatient (CLI) | payer MEDICARE, SELFPAY ==
[2022-08-05 18:05] VITALS: BMI 19.1
[2023-12-18 08:14] LABS: Alanine Aminotransferase 33 IU/L (<35); Albumin 4.5 g/dL (3.5-5.0); Albumin Globulin Ratio 2.1 (1.0-2.8); Alkaline Phosphatase 61 U/L (38-126); Aspartate Aminotransferase 36 IU/L (14-36); BUN Creatinine Ratio 29.2 (6-22); Bilirubin Total 0.8 mg/dL (0.2-1.3); Blood Urea Nitrogen 19 mg/dL (7-17); Calcium 9.9 mg/dL (8.4-10.2); Carbon Dioxide 30 mmol/L (22-32); Chloride 101 mmol/L (98-107); Cholesterol 128 mg/dL (140-199); Estimated Glomerular Filt Rate > 60 mL/min (>60); Globulin 2.1 g/dL (1.7-4.1); Glucose 90 mg/dL (80-110); HDL Cholesterol 84 mg/dL (40-60); HEMOLYSIS < 15 (0-50); LDL Cholesterol Calculated 36 mg/dL (<100); Potassium 5.1 mmol/L (3.4-5.1); Sodium 133 mmol/L (137-145); Total Protein 6.6 g/dL (6.3-8.2); Triglycerides 38 mg/dL (35-150)
== END ==
LOC: LAB 07:00
PROVIDERS: Family Provider Family Medicine; PCP Family Medicine; Referring Provider Family Medicine; Visit Provider Family Medicine
DX: E78.5 Hyperlipidemia, unspecified (principal); I10 Essential (primary) hypertension; G45.9 Transient cerebral ischemic attack, unspecified; M25.551 Pain in right hip; G89.29 Other chronic pain
CPT/HCPCS: 36415; 80053; 80061; 83695

== ENCOUNTER → 2024-06-03 15:05 | Outpatient (CLI) | payer MEDICARE, SELFPAY ==
[2022-08-05 18:05] VITALS: BMI 19.1
--- NOTE | 2024-06-03 | DI.MG.S_ITS ---
BILATERAL DIGITAL SCREENING MAMMOGRAM 3D/2D WITH CAD: 06/03/2024 CLINICAL: Routine screening. Personal history of right breast cancer. Comparison is made to exams dated: 06/02/2023 mammogram, 05/23/2022 mammogram, and 05/21/2021 mammogram - [facility]. The breasts are heterogeneously dense, which may obscure small masses (category c / 51-75% glandular tissue). Current study was also evaluated with a Computer Aided Detection (CAD) system. There is a benign calcification in the right breast. There also are benign calcifications in the left breast. Additionally, there are benign post operative findings in the right breast. No significant masses, calcifications, or other findings are seen in either breast. There has been no significant interval change. IMPRESSION: BENIGN There is no mammographic evidence of malignancy. A 1 year screening mammogram is recommended. This exam was interpreted at Station ID: [id number]. NOTE: For mammograms, a report in lay terms will be sent to the patient. Approximately 15% of breast malignancies will not be visualized mammographically. In the management of a palpable breast mass, a negative mammogram must not discourage biopsy of a clinically suspicious lesion. Electronically Signed By: Federico mercado/brenton:06/04/2024 08:46:50 letter sent: Normal Exam ACR BI-RADS Category 2: Benign
== END ==
LOC: MAMMO 15:06
PROVIDERS: Family Provider Family Medicine; PCP Family Medicine; Referring Provider Family Medicine; Visit Provider Family Medicine
DX: Z12.31 Encounter for screening mammogram for malignant neoplasm of breast (principal); Z85.3 Personal history of malignant neoplasm of breast; R92.333 Mammographic heterogeneous density, bilateral breasts
CPT/HCPCS: 77063; 77067

== ENCOUNTER → 2024-08-16 07:42 | Outpatient (CLI) | payer MEDICARE, SELFPAY ==
[2022-08-05 18:05] VITALS: BMI 19.1
[2024-08-16 08:37] LABS: Add Manual Diff / Slide Review NO; Basophils Absolute Auto 0 /uL (0-100); Basophils Percent Auto 0.9 % (0-2); Eosinophils Absolute Auto 100 /uL (0-450); Eosinophils Percent Auto 2.1 % (2-4); Hematocrit 43.7 % (36-46); Hemoglobin 14.5 g/dL (12.0-16.0); Lymphocytes Absolute Auto 900 /uL (1100-4500); Lymphocytes Percent Auto 17.1 % (25-40); Mean Corpuscular HGB Conc 33.1 % (30-36); Mean Corpuscular Hemoglobin 31.5 PG (26-34); Monocytes Absolute Auto 600 /uL (0-900); Monocytes Percent Auto 10.9 % (3-14); Neutrophils Absolute Auto 3600 /uL (1500-7000); Platelet Count 224 X10^3/uL (150-400); Red Cell Distribution Width 12.6 % (11.6-14.8); White Blood Cell Count 5.3 X10^3/uL (4.5-11.0)
[2024-08-16 08:55] LABS: Alanine Aminotransferase 32 IU/L (<35); Albumin 4.2 g/dL (3.5-5.0); Albumin Globulin Ratio 1.9 (1.0-2.8); Alkaline Phosphatase 67 U/L (38-126); Aspartate Aminotransferase 37 IU/L (14-36); BUN Creatinine Ratio 26.3 (6-22); Bilirubin Total 0.7 mg/dL (0.2-1.3); Blood Urea Nitrogen 15 mg/dL (7-17); Calcium 10.2 mg/dL (8.4-10.2); Carbon Dioxide 25 mmol/L (22-32); Chloride 102 mmol/L (98-107); Cholesterol 150 mg/dL (140-199); Estimated Glomerular Filt Rate > 60 mL/min (>60); Globulin 2.2 g/dL (1.7-4.1); Glucose 95 mg/dL (80-110); HDL Cholesterol 93 mg/dL (40-60); HEMOLYSIS 15 (0-50); LDL Cholesterol Calculated 46 mg/dL (<100); Potassium 4.7 mmol/L (3.4-5.1); Sodium 133 mmol/L (137-145); Total Protein 6.4 g/dL (6.3-8.2); Triglycerides 54 mg/dL (35-150)
[2024-08-16 09:26] LABS: TSH w/ Reflex to FT4 1.15 uIU/mL (0.47-4.68)
[2024-08-16 14:20] LABS: Creatinine Urine Random 84.69 mg/dL
[2024-08-16 14:27] LABS: Microalbumin Urine Random 1.6 mg/dL (0-1.6)
[2024-08-17 05:36] LABS: Apolipoprotein B 55 mg/dL (<90)
== END ==
PROVIDERS: Family Provider Family Medicine; PCP Family Medicine; Referring Provider Family Medicine; Visit Provider Family Medicine
DX: C50.919 Malignant neoplasm of unspecified site of unspecified female breast (principal); E78.5 Hyperlipidemia, unspecified; Z00.00 Encounter for general adult medical examination without abnormal findings; M47.816 Spondylosis without myelopathy or radiculopathy, lumbar region; I10 Essential (primary) hypertension; M25.50 Pain in unspecified joint; M16.11 Unilateral primary osteoarthritis, right hip
CPT/HCPCS: 36415; 80053; 80061; 82043; 82172; 82570; 84443; 85025

== ENCOUNTER → 2024-08-24 10:01 | Outpatient (CLI) | payer MEDICARE, SELFPAY ==
[2022-08-05 18:05] VITALS: BMI 19.1
--- NOTE | 2024-08-24 10:02 | DI.RAD.S_ITS ---
PROCEDURE: XR HIP W PEL IF DONE LT 2V INDICATIONS: left hip XR TECHNIQUE: AP pelvis and frogleg view of the left hip were acquired. COMPARISON: [facility], CR, XR HIP W PEL IF DONE RT 2V, 10/23/2023, 10:01. FINDINGS: Bones: There are no osseous abnormalities. Mild chronic osteitis pubis noted. SI and hip joints: Normal in width and alignment without arthritic change. Moderate L4-5 and L5-S1 degenerative disc disease noted. Soft tissues: 3 dystrophic calcification are seen inferior to the right obturator ring ranging up to 1.5 cm. IMPRESSION: Mild chronic osteitis pubis-otherwise negative pelvis Moderate L4-5 and L5-S1 degenerative disc disease Dictated by: Dakota Pool M.D. on 08/25/2024 at 9:37 Approved by: Dakota Pool M.D. on 08/25/2024 at 9:39
== END ==
PROVIDERS: Family Provider Family Medicine; PCP Family Medicine; Referring Provider Family Medicine; Visit Provider Family Medicine
DX: M51.369 Other intervertebral disc degeneration, lumbar region without mention of lumbar back pain or lower extremity pain (principal); M51.379 Other intervertebral disc degeneration, lumbosacral region without mention of lumbar back pain or lower extremity pain; M86.68 Other chronic osteomyelitis, other site; M25.552 Pain in left hip; G89.29 Other chronic pain
CPT/HCPCS: 73502

== ENCOUNTER 2025-01-18 16:38 | Outpatient (RCR) | payer MEDICARE, SELFPAY ==
[2022-08-05 18:05] VITALS: BMI 19.1
--- NOTE | 2025-01-18 17:45 | PT.OPPOC ---
Physical, Occupational & Speech Therapy At [facility] Current Diagnoses Other chronic pain (01/18/25) Unilateral primary osteoarthritis, right hip (01/18/25) Pain in right hip (01/18/25) Low back pain, unspecified (01/18/25) Visit Care Team Role Provider Type Holger Mae MD Attending Provider Physician Family Provider Primary Care Provider Referring Provider Specialty: Family Practice Address: [address] [place] [address], [facility] Email: [email or web address] Plan Of Care PT-OP-B Current Condition Start: 01/18/25 17:41 Freq: Status: Active Protocol: Document 01/18/25 17:00 DCW (Rec: 01/18/25 17:51 DCW [id number]) Current Condition History of Current Condition Onset Date Eight month history Current Complaints Posterior left hip pain when first getting up in the morning History of Current Pt is an 84 year old female presenting with a 7-8 month Condition history of left posterior hip pain. Pt reports she will typically have minimal pain when lying in bed, although will be worse when attempting to roll over, but then it will be quite sore when first standing up and moving around. Pt reports she goes through a five minute stretch/exercise routing, takes a hot shower, and by then, her hip is feeling largely better, and doesn't bother her the rest of the day. Pt notes she is very active, keeps herself very busy throughout the day, and does a lot of traveling. Pt hoping to get specific stretches or exercises that she can do when first waking up to help diminish or eliminate her hip pain. Would prefer to not spend too much time attending PT, hoping for an independent program. PT-OP-T Assessment and Plan Start: 01/18/25 17:41 Freq: Status: Active Protocol: Document 01/18/25 17:00 DCW (Rec: 01/19/25 10:17 DCW [id number]) Physical Therapy Assessment Rehab Potential Rehabilitation Excellent Potential Evaluation Complexity Number of Personal 1-2 Factors/ Comorbidities Number of Body 3 Systems Impaired Clinical Stable Presentation at Evaluation Impairments Impairments ROM,Soft Tissue Mobility,Strength Goals Two Impairment Pt experiences pain for 5-10 minutes upon rising in the morning Food Safety Scientist Goal (LTG) Pt to report no left hip pain when getting up in the morning in order to improve quality of life LTG Duration 02/18/25 One Impairment Pt does not have an appropriate home exercise program Short Term Goal (STG Pt to be independent and compliant with an appropriate ) HEP STG Duration 02/01/25 Assessment Summary Assessment Pt presents with signs and symptoms consistent with referring diagnosis. Pt experiencing increased tone and tenderness along left piriformis, particularly following an extended period of time without moving, mainly when getting up from bed in the morning. Pt very clearly states that she keeps herself very busy, and would prefer to focus more on simple stretches/ exercises she can do in bed upon first waking. Pt exhibits some mild bilateral hip weakness, but overall is doing quite well. Pt very happy with the provided HEP, including multiple piriformis stretches. Pt may benefit from further skilled therapeutic intervention, including STM and hip strengthening, if her hip pain continues. Pt did note already that if she notes good improvement, she will likely cancel remaining appointments. Physical Therapy Plan Frequency and Duration Frequency of 1-2x/week Treatment Plan of Care Start 01/18/25 Date Plan of Care End 02/17/25 Date Therapeutic Interventions Therapeutic Gait Training,Home Exercise Program,Joint Mobilizations Interventions ,Manual Therapy,Neuromuscular Re-education,Patient/ Caregiver Education,Self-Care/Home Management,Soft Tissue Mobilization,Therapeutic Activities,Therapeutic Exercises Next Visit Focus/Plan Next Note Type Treatment Note Next Visit Plan STM, Hip strengthening Plan of Care Dates Plan of Care Start Date 01/18/25 Plan of Care End Date 02/17/25 Electronically Signed by: Ildefonso Rea, PT 01/19/25 1018 If you are in agreement with this Plan of Care, please return a signed and dated copy. I have reviewed this Plan of Care and certify that the skilled therapy services above are required to meet the patient?s needs. Physician Signature Date Printed Name and Credentials Clinical Instructor Signature Printed Name and Credentials
--- NOTE | 2025-01-18 17:45 | PT.OIE ---
Current Diagnoses Other chronic pain (01/18/25) Unilateral primary osteoarthritis, right hip (01/18/25) Pain in right hip (01/18/25) Low back pain, unspecified (01/18/25) Past Medical History (Last Updated 11/13/23 @ 16:42 by Jonel Whitehead MD) Adhesive capsulitis Arthralgia of multiple joints Borderline hyperlipidemia Borderline hypertension Breast cancer Breast cancer, right Carpal tunnel syndrome on both sides Cataract (2013) Chicken pox (~194) Chronic knee pain Chronic right hip pain CTS (carpal tunnel syndrome) Dupuytren contracture Hearing loss (2012) Heart murmur Hyperlipidemia Hypertension Insomnia Left trigger finger Low back pain Lumbar spondylosis Medicare annual wellness visit, subsequent Mumps (~1954) Osteoarthritis of right hip Osteopenia (1998) Pulsatile abdominal mass Rheumatic fever (~1942) Scoliosis Tinnitus (~2004) Well adult exam Past Surgical History (Last Reviewed 11/13/23 @ 16:41 by Jonel Whitehead MD) Anesthesia History of carpal tunnel repair (01/2005) History of carpal tunnel repair (08/2010) History of cataract surgery (2013) Hx of right breast biopsy Status post hernia repair (1947) Visit Care Team Role Provider Type Holger Mae MD Attending Provider Physician Family Provider Primary Care Provider Referring Provider Specialty: Family Practice Address: [address] [place] [address], [facility] Email: [email or web address] Physical Therapy Initial Evaluation PT-OP-A Visit Information Start: 01/18/25 17:41 Freq: Status: Active Protocol: Document 01/18/25 17:00 DCW (Rec: 01/18/25 17:51 DCW [id number]) Out-Patient Physical Therapy Visit Information Visit Information Visit Type Initial Evaluation Visit Start Time 17:00 Visit Stop Time 17:30 Visit Number 1 Number of MANAGER ENVIRONMENTAL AFFAIRS Visits 0 Evaluation Information Evaluation Date 01/18/25 PT-OP-B Current Condition Start: 01/18/25 17:41 Freq: Status: Active Protocol: Document 01/18/25 17:00 DCW (Rec: 01/18/25 17:51 DCW [id number]) Current Condition History of Current Condition Onset Date Eight month history Current Complaints Posterior left hip pain when first getting up in the morning History of Current Pt is an 84 year old female presenting with a 7-8 month Condition history of left posterior hip pain. Pt reports she will typically have minimal pain when lying in bed, although will be worse when attempting to roll over, but then it will be quite sore when first standing up and moving around. Pt reports she goes through a five minute stretch/exercise routing, takes a hot shower, and by then, her hip is feeling largely better, and doesn't bother her the rest of the day. Pt notes she is very active, keeps herself very busy throughout the day, and does a lot of traveling. Pt hoping to get specific stretches or exercises that she can do when first waking up to help diminish or eliminate her hip pain. Would prefer to not spend too much time attending PT, hoping for an independent program. PT-OP-C Subjective Start: 01/18/25 17:41 Freq: Status: Active Protocol: Document 01/18/25 17:00 DCW (Rec: 01/18/25 17:51 DCW [id number]) OP-PT Subjective Patient Comments Patient Comments I was referred here a few months ago, but I didn't come in, I convinced myself it was just arthritis, and nothing was going to help it, plus I was traveling a lot. Patient Reported Same Progress Patient Questionnaires Lower Extremity Functional Scale LEFS Score 70/80 = 87.5% LEFS Impairment 1 to 19% Impaired (Score 63-79) PT-OP-F Manual Assessment Start: 01/18/25 17:41 Freq: Status: Active Protocol: Document 01/18/25 17:00 DCW (Rec: 01/19/25 09:42 DCW [id number]) Manual Assessments Soft Tissue Assessment Soft Tissue Mobility Tenderness to palpation 3/4: Wincing and withdraw along Assessment left piriformis PT-OP-K Range of Motion Start: 01/18/25 17:41 Freq: Status: Active Protocol: Document 01/18/25 17:00 DCW (Rec: 01/19/25 09:42 DCW [id number]) Hip Goniometric Range of Motion Hip Right Passive Internal Rotation 44 External Rotation 45 Right Active Testing Position Supine Internal Rotation 25 External Rotation 35 Left Passive Internal Rotation 41 External Rotation 45 Left Active Testing Position Sitting Internal Rotation 25 External Rotation 30 PT-OP-L Special Tests Start: 01/19/25 09:42 Freq: Status: Active Protocol: Document 01/18/25 17:00 DCW (Rec: 01/19/25 09:43 [facility] [id number]) Special Tests Hip Special Tests Scour Test Test Results Negative DIVYA Test Results Negative Piriformis Test Results Left piriformis stiffness PT-OP-M Strength Start: 01/18/25 17:41 Freq: Status: Active Protocol: Document 01/18/25 17:00 DCW (Rec: 01/19/25 09:42 [id number] Hip Strength Hip Manual Muscle Testing Right Flexion (L2) 4 Good External Rotation 4 Good Internal Rotation 4 Good Left Flexion (L2) 4 Good External Rotation 4 Good Internal Rotation 4 Good Knee Strength Knee Manual Muscle Testing Right Flexion (S2) 4+ Good+ Extension (L3) 4+ Good+ Left Flexion (S2) 4+ Good+ Extension (L3) 4+ Good+ PT-OP-Q Treatments Start: 01/18/25 17:41 Freq: Status: Active Protocol: Document 01/18/25 17:00 DCW (Rec: 01/18/25 17:51 [facility] [id number]) Therapeutic Exercises Supine Exercises Piriformis Supine Exercise Name Knee to opposite shoulder, Figure-4 Side left Sitting Exercises Piriformis Sitting Exercise Seated Figure-4 Name Side left PT-OP-T Assessment and Plan Start: 01/18/25 17:41 Freq: Status: Active Protocol: Document 01/18/25 17:00 DCW (Rec: 01/19/25 10:17 [facility] [id number]) Physical Therapy Assessment Rehab Potential Rehabilitation Excellent Potential Evaluation Complexity Number of Personal 1-2 Factors/ Comorbidities Number of Body 3 Systems Impaired Clinical Stable Presentation at Evaluation Impairments Impairments ROM,Soft Tissue Mobility,Strength Goals Two Impairment Pt experiences pain for 5-10 minutes upon rising in the morning Nursing Home Goal (LTG) Pt to report no left hip pain when getting up in the morning in order to improve quality of life LTG Duration 02/18/25 One Impairment Pt does not have an appropriate home exercise program Short Term Goal (STG Pt to be independent and compliant with an appropriate ) HEP STG Duration 02/01/25 Assessment Summary Assessment Pt presents with signs and symptoms consistent with referring diagnosis. Pt experiencing increased tone and tenderness along left piriformis, particularly following an extended period of time without moving, mainly when getting up from bed in the morning. Pt very clearly states that she keeps herself very busy, and would prefer to focus more on simple stretches/ exercises she can do in bed upon first waking. Pt exhibits some mild bilateral hip weakness, but overall is doing quite well. Pt very happy with the provided HEP, including multiple piriformis stretches. Pt may benefit from further skilled therapeutic intervention, including STM and hip strengthening, if her hip pain continues. Pt did note already that if she notes good improvement, she will likely cancel remaining appointments. Physical Therapy Plan Frequency and Duration Frequency of 1-2x/week Treatment Plan of Care Start 01/18/25 Date Plan of Care End 02/17/25 Date Therapeutic Interventions Therapeutic Gait Training,Home Exercise Program,Joint Mobilizations Interventions ,Manual Therapy,Neuromuscular Re-education,Patient/ Caregiver Education,Self-Care/Home Management,Soft Tissue Mobilization,Therapeutic Activities,Therapeutic Exercises Next Visit Focus/Plan Next Note Type Treatment Note Next Visit Plan STM, Hip strengthening
--- NOTE | 2025-02-16 15:51 | PT.OPDS ---
Current Diagnoses Other chronic pain (01/18/25) Unilateral primary osteoarthritis, right hip (01/18/25) Pain in right hip (01/18/25) Low back pain, unspecified (01/18/25) Visit Care Team Role Provider Type Holger Mae MD Attending Provider Physician Family Provider Primary Care Provider Referring Provider Specialty: [facility] Practice Address: [address] [place] [address] Email: [email or web address] Visit Number Visit Number 1 Discharge Summary PT-OP-B Current Condition Start: 01/18/25 17:41 Freq: Status: Active Protocol: Document 01/18/25 17:00 DCW (Rec: 01/18/25 17:51 DCW [id number]) Current Condition History of Current Condition Onset Date Eight month history Current Complaints Posterior left hip pain when first getting up in the morning History of Current Pt is an 84 year old female presenting with a 7-8 month Condition history of left posterior hip pain. Pt reports she will typically have minimal pain when lying in bed, although will be worse when attempting to roll over, but then it will be quite sore when first standing up and moving around. Pt reports she goes through a five minute stretch/exercise routing, takes a hot shower, and by then, her hip is feeling largely better, and doesn't bother her the rest of the day. Pt notes she is very active, keeps herself very busy throughout the day, and does a lot of traveling. Pt hoping to get specific stretches or exercises that she can do when first waking up to help diminish or eliminate her hip pain. Would prefer to not spend too much time attending PT, hoping for an independent program. PT-OP-C Subjective Start: 01/18/25 17:41 Freq: Status: Active Protocol: Document 01/18/25 17:00 DCW (Rec: 01/18/25 17:51 DCW [id number]) OP-PT Subjective Patient Comments Patient Comments I was referred here a few months ago, but I didn't come in, I convinced myself it was just arthritis, and nothing was going to help it, plus I was traveling a lot. Patient Reported Same Progress Patient Questionnaires Lower Extremity Functional Scale LEFS Score 70/80 = 87.5% LEFS Impairment 1 to 19% Impaired (Score 63-79) PT-OP-F Manual Assessment Start: 01/18/25 17:41 Freq: Status: Active Protocol: Document 01/18/25 17:00 DCW (Rec: 01/19/25 09:42 DCW [id number]) Manual Assessments Soft Tissue Assessment Soft Tissue Mobility Tenderness to palpation 3/4: Wincing and withdraw along Assessment left piriformis PT-OP-K Range of Motion Start: 01/18/25 17:41 Freq: Status: Active Protocol: Document 01/18/25 17:00 DCW (Rec: 01/19/25 09:42 DCW [id number]) Hip Goniometric Range of Motion Hip Right Passive Internal Rotation 44 External Rotation 45 Right Active Testing Position Supine Internal Rotation 25 External Rotation 35 Left Passive Internal Rotation 41 External Rotation 45 Left Active Testing Position Sitting Internal Rotation 25 External Rotation 30 PT-OP-L Special Tests Start: 01/19/25 09:42 Freq: Status: Active Protocol: Document 01/18/25 17:00 DCW (Rec: 01/19/25 09:43 DCW [id number]) Special Tests Hip Special Tests Scour Test Test Results Negative DIVYA Test Results Negative Piriformis Test Results Left piriformis stiffness PT-OP-M Strength Start: 01/18/25 17:41 Freq: Status: Active Protocol: Document 01/18/25 17:00 DCW (Rec: 01/19/25 09:42 DCW [id number]) Hip Strength Hip Manual Muscle Testing Right Flexion (L2) 4 Good External Rotation 4 Good Internal Rotation 4 Good Left Flexion (L2) 4 Good External Rotation 4 Good Internal Rotation 4 Good Knee Strength Knee Manual Muscle Testing Right Flexion (S2) 4+ Good+ Extension (L3) 4+ Good+ Left Flexion (S2) 4+ Good+ Extension (L3) 4+ Good+ PT-OP-T Assessment and Plan Start: 01/18/25 17:41 Freq: Status: Active Protocol: Document 02/16/25 15:49 DCW (Rec: 02/16/25 15:51 DCW [id number]) Physical Therapy Assessment Goals Two Impairment Pt experiences pain for 5-10 minutes upon rising in the morning Longterm Goal (LTG) Pt to report no left hip pain when getting up in the morning in order to improve quality of life LTG Duration 7/11/25 One Impairment Pt does not have an appropriate home exercise program Short Term Goal (STG Pt to be independent and compliant with an appropriate ) HEP STG Duration 02/01/25 Assessment Summary Assessment At the time of her eval, pt reports that if she was feeling good with her HEP and felt she was improving, she would cancel remaining appointments. Since that time, pt has, in fact, cancelled all of her appointments. Pt will be discharged from skilled PT at this time, will require a new referral in order to return in the future if needed. Physical Therapy Plan Discharge Physical Therapy Discharge Reasons No Longer Attending PT
== END 2025-02-17 08:55 | disposition home or self-care (01) ==
LOC: PHYS 16:38
PROVIDERS: Family Provider Family Medicine; PCP Family Medicine; Referring Provider Family Medicine; Visit Provider Family Medicine
DX: M54.50 Low back pain, unspecified (principal); G89.29 Other chronic pain; M16.11 Unilateral primary osteoarthritis, right hip; M25.551 Pain in right hip
CPT/HCPCS: 97161

== ENCOUNTER → 2025-02-01 10:44 | Outpatient (CLI) | payer MEDICARE, SELFPAY ==
[2022-08-05 18:05] VITALS: BMI 19.1
[2025-02-01 11:44] LABS: Influenza A - CEPHEID Flu A NEGATIVE (NEGATIVE); Influenza B - CEPHEID Flu B NEGATIVE (NEGATIVE); Respiratory Syncytial Virus Negative (Negative)
[2025-02-01 12:09] LABS: COVID-19 CEPHEID 4-PLEX PCR Negative (Negative)
== END ==
PROVIDERS: Family Provider Family Medicine; PCP Family Medicine; Visit Provider Nurse Practitioner Family
DX: R05.1 Acute cough (principal)
CPT/HCPCS: 0241U

== ENCOUNTER → 2025-02-01 10:55 | Outpatient (CLI) | payer MEDICARE, SELFPAY ==
[2022-08-05 18:05] VITALS: BMI 19.1
--- NOTE | 2025-02-01 10:57 | DI.RAD.S_ITS ---
PROCEDURE: XR CHEST 2V INDICATIONS: Cough TECHNIQUE: 2 views of the chest were acquired. COMPARISON: [facility], CR, XR CHEST 1V, 08/05/2022, 15:13. FINDINGS: Surgical changes and devices: None. Lungs and pleura: Lungs are clear. No pleural effusions or pneumothorax. Mediastinum: Mediastinal contours are normal. Heart size is normal. Atherosclerotic vascular calcifications. Bones and chest wall: No suspicious bony abnormalities. Soft tissues appear unremarkable. IMPRESSION: No acute cardiopulmonary abnormality is seen. Dictated by: Rai Pierson M.D. on 02/01/2025 at 23:59 Approved by: Rai Pierson M.D. on 02/02/2025 at 0:00
== END ==
PROVIDERS: Family Provider Family Medicine; PCP Family Medicine; Referring Provider Nurse Practitioner Family; Visit Provider Nurse Practitioner Family
DX: R05.1 Acute cough (principal)
CPT/HCPCS: 0241U; 71046

== ENCOUNTER → 2025-06-04 08:56 | Outpatient (CLI) | payer OTHER, SELFPAY ==
[2022-08-05 18:05] VITALS: BMI 19.1
--- NOTE | 2025-06-04 08:59 | DI.MG.S_ITS ---
MM screening mammo BI: 06/04/2025. BI-RADS: 0 CLINICAL: 84-year old female for bilateral screening mammogram. No Tyrer-Cuzick risk score calculation due to the patient's personal history of breast cancer. Patient reports a history of right breast carcinoma diagnosed at age 79. Status-post right lumpectomy with radiation therapy and hormonal therapy. No first-degree family history of breast cancer. The patient had a prior right breast biopsy. PRIOR EXAMS: 06/03/2024, 06/02/2023, 05/23/2022, 05/21/2021. MAMMOGRAPHY TECHNIQUE: 2D and 3D (tomosynthesis) digital mammographic views obtained, with additional images as needed for full coverage. Current study was also evaluated with a Computer Aided Detection (CAD) system. DENSITY C. The breasts are heterogeneously dense, which may obscure small masses. MAMMOGRAPHY FINDINGS Right: Benign-appearing post-surgical changes noted on the right. There are no suspicious masses, calcifications, or other findings in the breast. Left: Lower Outer at 3:00, Posterior depth: Focal asymmetry needing additional imaging evaluation. IMPRESSION: Right * No evidence of malignancy with benign findings. Left (Asymmetry): Lower Outer at 3:00, Posterior depth * Incomplete - focal asymmetry needing additional imaging evaluation. RECOMMENDATIONS Left: Lower Outer at 3:00, Posterior depth * Further evaluation with diagnostic mammography and diagnostic ultrasound. Ultrasound to be performed only if needed. OVERALL ASSESSMENT CATEGORY BI-RADS-0: Incomplete - Need Additional Imaging Evaluation. ELECTRONICALLY SIGNED: Terrell Rea M.D. on 06/04/2025 at 09:58:01 AM PT Interpreting Station ID: [id number]
== END ==
LOC: MAMMO 08:58
PROVIDERS: Family Provider Family Medicine; PCP Family Medicine; Referring Provider Family Medicine; Visit Provider Family Medicine
DX: Z12.31 Encounter for screening mammogram for malignant neoplasm of breast (principal); R92.333 Mammographic heterogeneous density, bilateral breasts; Z85.3 Personal history of malignant neoplasm of breast
CPT/HCPCS: 77063; 77067